=== PATIENT | male | born 1940 | race Caucasian/White ===

== ENCOUNTER 2017-06-25 01:02 | Inpatient (IN) | payer MEDICARE, BC ==
[~2017-06-25] VITALS: Ht 170.2 cm; Wt 95.9 kg
[~2017-06-25 01:02] MED LIST: ALLO100T PO; APIX5TAB3 PO; ATOR20TA PO; CALC-472 PO; CHOL2000 PO; CYCL100C PO; CYCL1DRO6 OP; CYCL25CA PO; ESOM40CA PO; FLO0.4C PO; FURO-150 PO; GABA-532 PO; GLYB1.253 PO; ICOS1CAP PO; METO25TA6 PO; VITA400C21 PO
[2017-06-25 01:46] LABS: ABG BASE EXCESS 1.9 mmol/L (-2.0-3.0); ABG HCO3 25.5 mmol/L (22.0-26.0); ABG PCO2 (T) 36.6 mmHg (35.0-48.0); ABG PH (T) 7.461 (7.350-7.450); ABG PO2 (T) 60.4 mmHg (83-108); ALLEN'S TEST Positive; FCOHb 1.3 % (0.5-1.5); FMetHb 0.3 % (0.3-1.12); FO2Hb 90.5 % (94-100); PATIENT TEMPERATURE 36.9; RESPIRATORY RATE (OBSERVED) 20 b/min; TOTAL HEMOGLOBIN 14.6 G/dl (14.0-18.0)
[2017-06-25 01:54] LABS: BASOPHILS % (AUTO) 0.2 % (0-1); EOSINOPHILS # (AUTO) 0.2 X10'3 (0-0.9); EOSINOPHILS % (AUTO) 1.1 % (0-6); HEMATOCRIT 43.4 % (42.0-52.0); HEMOGLOBIN 14.2 g/dl (14.0-17.9); LYMPHOCYTES # (AUTO) 1.4 X10'3 (1.1-4.8); MEAN CORPUSCULAR HGB CONC 32.8 % (33.0-36.5); MEAN CORPUSCULAR VOLUME 94.7 FL (78-98); MEAN PLATELET VOLUME 9.1 FL (7.4-10.4); MONOCYTES # (AUTO) 0.8 X10'3 (0-0.9); MONOCYTES % (AUTO) 5.2 % (2-12); NEUTROPHILS # (AUTO) 12.8 X10'3 (1.8-7.7); NEUTROPHILS % (AUTO) 84.5 % (42-75); PLATELET COUNT 141 X10'3 (140-440); RED BLOOD COUNT 4.59 X10'6 (4.70-6.10); RED CELL DISTRIBUTION WIDTH 16.6 % (11.5-14.5); WHITE BLOOD COUNT 15.1 X10'3 (4.5-11.0)
[2017-06-25 02:06] LABS: CLARITY,URINE Clear (Clear); COLOR,URINE Yellow (Yellow); GLUCOSE, URINE Negative (Neg); KETONES,URINE Negative (Neg); LEUKOCYTE ESTERASE ,URINE Negative (Neg); NITRITES, URINE Negative (Neg); OCCULT BLOOD,URINE Negative (Neg); PROTEIN,URINE Negative (Neg)
[2017-06-25 02:08] LABS: AMMONIA < 10 UMOL/L (11-32); INR 1.2 INR; PARTIAL THROMBOPLASTIN TIME 33 SECONDS (22-32); PROTHROMBIN TIME 12.1 SECONDS (9.0-12.0)
[2017-06-25 02:08] LABS: UA COLLECTION TYPE CLN CATCH MIDSTREAM
[2017-06-25 02:17] LABS: LACTIC SEPSIS 1.7 MMOL/L (0.4-2.0)
[2017-06-25 02:29] LABS: ALANINE AMINOTRANSFERASE 23 U/L (12-78); ALBUMIN 3.4 G/DL (3.4-5.0); ALBUMIN/GLOBULIN RATIO 0.9 (1.1-1.5); ALKALINE PHOSPHATASE 101 IU/L (46-116); ANION GAP 9 (8-16); ASPARTATE AMINO TRANSFERASE 14 U/L (10-37); BILIRUBIN,TOTAL 1.7 MG/DL (0.1-1.0); BLOOD UREA NITROGEN 41 MG/DL (7-18); BUN/CREATININE RATIO 22.8 (5.4-32.0); CHLORIDE 101 MMOL/L (99-107); GLUCOSE 157 MG/DL (70-104); POTASSIUM 4.7 MMOL/L (3.5-5.1); SODIUM 137 MMOL/L (135-145); TOTAL CARBON DIOXIDE 27.5 MMOL/L (24-32); TOTAL PROTEIN 7.1 G/DL (6.4-8.2); eGFR 37 ML/MIN
[2017-06-25 02:35] LABS: MAGNESIUM 1.4 MG/DL (1.5-2.4); PHOSPHORUS 2.9 MG/DL (2.3-4.5)
[2017-06-25] MEDS ORDERED: acetaminophen 325mg tablet PO ONE (03:00)
[2017-06-25] MEDS ORDERED: furosemide 10 MG/1 ML 10ml inj IV ONE (03:05)
[2017-06-25] MEDS ORDERED: glucagon, human recombinant 1mg kit SUBCUT PRN ×2 (03:50→11:35)
[2017-06-25] MEDS ORDERED: magnesium 2GM in 50ml NS 50 ML IV PRN ×2 (03:50→11:35)
[2017-06-25] MEDS ORDERED: morphine 5 MG/ML injection IV PRN ×2 (03:50)
[2017-06-25] MEDS ORDERED: dextrose 50%-water 50ml dispensing syringe IV PRN ×4 (03:50→11:35)
[2017-06-25] MEDS ORDERED: MESSAGE TO PHARMACY PO ONE ×2 (03:50→11:35)
[2017-06-25] MEDS ORDERED: diphenhydrAMINE 25mg capsule PO PRN (03:50)
[2017-06-25] MEDS ORDERED: ondansetron/PF 4mg/2ml inj IV PRN (03:50)
[2017-06-25] MEDS ORDERED: HYDROcodone/acetaminophen 5mg/325mg tablet PO PRN (03:50)
[2017-06-25] MEDS ORDERED: dextrose ORAL solution 15 GM/59 ML bottle PO PRN ×4 (03:50→11:35)
[2017-06-25] MEDS ORDERED: HYDROcodone/acetaminophen 10/325mg tab PO PRN (03:50)
[2017-06-25] MEDS ORDERED: acetaminophen 650mg rectal suppository RC PRN (03:50)
[2017-06-25] MEDS ORDERED: metoclopramide 5 mg/ml inj IV PRN (03:50)
[2017-06-25] MEDS ORDERED: mag hydrox/Alum hydrox/simeth 30ml oral suspension PO PRN (03:50)
[2017-06-25] MEDS ORDERED: bisacodyl 10mg suppository rectal RC PRN (03:50)
[2017-06-25] MEDS ORDERED: magnesium hydroxide 30ml (MOM) UD suspension PO PRN (03:50)
[2017-06-25] MEDS ORDERED: magnesium 4gm in 100ml NS 100 ML IV PRN ×2 (03:50→11:35)
[2017-06-25] MEDS ORDERED: diphenhydrAMINE 50 mg/ml inj IV PRN (03:50)
[2017-06-25] MEDS ORDERED: HYDROmorphone 1 mg/ml syringe IV PRN ×2 (03:50)
[2017-06-25] MEDS ORDERED: acetaminophen 325mg tablet PO PRN ×2 (03:50)
[2017-06-25] MEDS ORDERED: FURO-150 PO (03:51)
[2017-06-25] MEDS ORDERED: FURO40TA4 PO (03:51)
[2017-06-25] MEDS ORDERED: PREG200C PO (03:58)
[2017-06-25] MEDS ORDERED: HYDR-565 PO (03:58)
[2017-06-25] MEDS ORDERED: POTA10TA19 PO (03:58)
[2017-06-25] MEDS ORDERED: ZOLP5TAB8 PO (03:58)
[2017-06-25] MEDS ORDERED: PREG100C PO (03:58)
[2017-06-25 04:26] LABS: HEMOGLOBIN A1C 7.3 % (4.5-6.2)
[2017-06-25 04:28] LABS: LIPASE 191 U/L (73-393)
[2017-06-25 04:30] VITALS: BP 88/58
[2017-06-25] MEDS ORDERED: furosemide 10 MG/1 ML 10ml inj IV SCH (08:00)
[2017-06-25] MEDS: apixaban 5mg tablet PO SCH ×2 (08:00→23:51)
[2017-06-25] MEDS ORDERED: ESOMEPRAZOLE MAG TRIHYDRATE 40 MG PO SCH (08:00)
[2017-06-25] MEDS: allopurinol 100mg tablet PO SCH (08:10)
[2017-06-25] MEDS: docusate sod 100mg capsule PO SCH ×2 (08:10→23:48)
[2017-06-25] MEDS: gabapentin 300mg capsule PO SCH (08:10)
[2017-06-25] MEDS: tamsulosin 0.4mg capsule PO SCH (08:23)
[2017-06-25] MEDS: metoprolol tartrate 25mg tablet PO SCH ×2 (08:23→23:51)
[2017-06-25] MEDS: pantoprazole 40mg Tablet.DR PO SCH (08:24)
[2017-06-25 11:00] VITALS: BP 102/56
[2017-06-25] MEDS ORDERED: potassium Cl 20 mEq SR tablet PO PRN ×2 (11:35)
[2017-06-25] MEDS ORDERED: potassium Cl 40MEQ/NS 500ml 500 ML IV PRN ×2 (11:35)
[2017-06-25] MEDS ORDERED: insulin Lispro (HumaLOG) vial - multi-dose SQ SCH (11:35)
[2017-06-25] MEDS ORDERED: magnesium Cl slow-release 64mg tablet PO PRN (11:35)
[2017-06-25] MEDS: vancomycin inj 1,250 MG in normal saline 250ml IV soln 250 ML IV SCH (14:27)
[2017-06-25 15:00] VITALS: BP 114/60
[2017-06-25] MEDS: piperacillin/tazo 3.375gm/50ml 50 ML IV SCH ×2 (16:10→23:57)
[2017-06-25 19:00] VITALS: BP 125/85
[2017-06-25] MEDS ORDERED: temazepam 15mg capsule PO PRN (21:00)
[2017-06-25 23:00] VITALS: BP 126/60
[2017-06-25] MEDS: vitamin E 400 unit capsule PO SCH (23:47)
[2017-06-25] MEDS: calcium carbonate/vitamin D3 tablet PO SCH (23:50)
[2017-06-25] MEDS: atorvastatin 20mg tablet PO SCH (23:50)
[2017-06-25] MEDS: pregabalin 25mg capsule PO SCH (23:50)
[2017-06-25] MEDS: furosemide 10 MG/1 ML 10ml inj IV SCH (23:54)
[2017-06-26] MEDS: gabapentin 300mg capsule PO SCH ×3 (00:17→20:09)
[2017-06-26] MEDS: insulin glargine (Lantus) pen - multi-dose SQ SCH ×2 (00:27→23:52)
[2017-06-26] MEDS: piperacillin/tazo 3.375gm/50ml 50 ML IV SCH ×4 (02:00→20:06)
[2017-06-26 03:00] VITALS: BP 104/59
[2017-06-26 05:29] LABS: BASOPHILS % (AUTO) 0.2 % (0-1); EOSINOPHILS # (AUTO) 0.2 X10'3 (0-0.9); EOSINOPHILS % (AUTO) 1.5 % (0-6); HEMATOCRIT 37.9 % (42.0-52.0); HEMOGLOBIN 12.6 g/dl (14.0-17.9); LYMPHOCYTES # (AUTO) 1.4 X10'3 (1.1-4.8); LYMPHOCYTES % (AUTO) 12.5 % (21-51); MEAN CORPUSCULAR HEMOGLOBIN 31.3 PG (27.0-31.0); MEAN CORPUSCULAR HGB CONC 33.3 % (33.0-36.5); MEAN CORPUSCULAR VOLUME 94.1 FL (78-98); MONOCYTES # (AUTO) 0.8 X10'3 (0-0.9); MONOCYTES % (AUTO) 7.6 % (2-12); NEUTROPHILS # (AUTO) 8.7 X10'3 (1.8-7.7); NEUTROPHILS % (AUTO) 78.2 % (42-75); PLATELET COUNT 129 X10'3 (140-440); RED BLOOD COUNT 4.03 X10'6 (4.70-6.10); RED CELL DISTRIBUTION WIDTH 17.3 % (11.5-14.5); WHITE BLOOD COUNT 11.1 X10'3 (4.5-11.0)
[2017-06-26 06:00] VITALS: BP 104/55
[2017-06-26 06:12] LABS: ALANINE AMINOTRANSFERASE 15 U/L (12-78); ALBUMIN 2.9 G/DL (3.4-5.0); ALBUMIN/GLOBULIN RATIO 0.8 (1.1-1.5); ALKALINE PHOSPHATASE 94 IU/L (46-116); ANION GAP 11 (8-16); ASPARTATE AMINO TRANSFERASE 12 U/L (10-37); BILIRUBIN,TOTAL 1.9 MG/DL (0.1-1.0); BLOOD UREA NITROGEN 43 MG/DL (7-18); BUN/CREATININE RATIO 23.9 (5.4-32.0); CALCIUM 8.5 MG/DL (8.5-10.1); CHLORIDE 100 MMOL/L (99-107); GLUCOSE 141 MG/DL (70-104); MAGNESIUM 1.3 MG/DL (1.5-2.4); POTASSIUM 3.9 MMOL/L (3.5-5.1); SODIUM 140 MMOL/L (135-145); TOTAL CARBON DIOXIDE 28.8 MMOL/L (24-32); TOTAL PROTEIN 6.6 G/DL (6.4-8.2); eGFR 37 ML/MIN
[2017-06-26] MEDS: pregabalin 25mg capsule PO SCH ×2 (09:16→20:08)
[2017-06-26] MEDS: apixaban 5mg tablet PO SCH ×2 (09:16→19:47)
[2017-06-26] MEDS: furosemide 10 MG/1 ML 10ml inj IV SCH (09:16)
[2017-06-26] MEDS: pantoprazole 40mg Tablet.DR PO SCH (09:17)
[2017-06-26] MEDS: metoprolol tartrate 25mg tablet PO SCH ×2 (09:18→19:48)
[2017-06-26] MEDS: docusate sod 100mg capsule PO SCH ×2 (09:18→19:48)
[2017-06-26] MEDS: allopurinol 100mg tablet PO SCH (09:18)
[2017-06-26] MEDS: vitamin E 400 unit capsule PO SCH ×2 (09:18→19:46)
[2017-06-26] MEDS: tamsulosin 0.4mg capsule PO SCH (09:19)
[2017-06-26] MEDS ORDERED: magnesium 4gm in 100ml NS 100 ML IV PRN (09:20)
[2017-06-26] MEDS ORDERED: potassium Cl 40MEQ/NS 500ml 500 ML IV PRN ×2 (09:20)
[2017-06-26] MEDS ORDERED: magnesium Cl slow-release 64mg tablet PO PRN (09:20)
[2017-06-26] MEDS ORDERED: potassium Cl 20 mEq SR tablet PO PRN ×2 (09:20)
[2017-06-26] MEDS ORDERED: magnesium 2GM in 50ml NS 50 ML IV PRN (09:20)
[2017-06-26] MEDS: calcium carbonate/vitamin D3 tablet PO SCH ×2 (10:03→19:46)
[2017-06-26] MEDS: magnesium Cl slow-release 64mg tablet PO PRN ×2 (10:04→20:09)
[2017-06-26 11:00] VITALS: BP 114/65
[2017-06-26] MEDS: insulin Lispro (HumaLOG) vial - multi-dose SQ SCH ×2 (13:28→19:43)
[2017-06-26 15:00] VITALS: BP 96/64
[2017-06-26] MEDS: vancomycin inj 1,250 MG in normal saline 250ml IV soln 250 ML IV SCH (16:08)
[2017-06-26 19:00] VITALS: BP 130/81
[2017-06-26] MEDS: furosemide 20 MG/2 ML vial IV SCH (20:05)
[2017-06-26] MEDS: atorvastatin 20mg tablet PO SCH (20:08)
[2017-06-26 23:00] VITALS: BP 101/53
[2017-06-27] MEDS: piperacillin/tazo 3.375gm/50ml 50 ML IV SCH ×2 (01:34→08:47)
[2017-06-27 03:00] VITALS: BP 116/59
[2017-06-27 06:00] VITALS: BP 109/57
[2017-06-27 06:55] LABS: BASOPHILS % (AUTO) 0.2 % (0-1); EOSINOPHILS # (AUTO) 0.2 X10'3 (0-0.9); EOSINOPHILS % (AUTO) 2.5 % (0-6); HEMATOCRIT 38.9 % (42.0-52.0); HEMOGLOBIN 12.8 g/dl (14.0-17.9); LYMPHOCYTES # (AUTO) 1.2 X10'3 (1.1-4.8); LYMPHOCYTES % (AUTO) 12.5 % (21-51); MEAN CORPUSCULAR HEMOGLOBIN 31.2 PG (27.0-31.0); MEAN CORPUSCULAR HGB CONC 32.9 % (33.0-36.5); MEAN PLATELET VOLUME 9.1 FL (7.4-10.4); MONOCYTES # (AUTO) 0.8 X10'3 (0-0.9); MONOCYTES % (AUTO) 8.2 % (2-12); NEUTROPHILS # (AUTO) 7.2 X10'3 (1.8-7.7); NEUTROPHILS % (AUTO) 76.6 % (42-75); PLATELET COUNT 134 X10'3 (140-440); RED CELL DISTRIBUTION WIDTH 17.7 % (11.5-14.5); WHITE BLOOD COUNT 9.4 X10'3 (4.5-11.0)
[2017-06-27] MEDS: pantoprazole 40mg Tablet.DR PO SCH (07:30)
[2017-06-27 07:34] LABS: ALANINE AMINOTRANSFERASE 18 U/L (12-78); ALBUMIN 2.9 G/DL (3.4-5.0); ALBUMIN/GLOBULIN RATIO 0.8 (1.1-1.5); ALKALINE PHOSPHATASE 99 IU/L (46-116); ANION GAP 11 (8-16); ASPARTATE AMINO TRANSFERASE 13 U/L (10-37); BILIRUBIN,TOTAL 1.3 MG/DL (0.1-1.0); BLOOD UREA NITROGEN 45 MG/DL (7-18); BUN/CREATININE RATIO 23.2 (5.4-32.0); CALCIUM 8.9 MG/DL (8.5-10.1); CHLORIDE 100 MMOL/L (99-107); CREATININE 1.94 MG/DL (0.60-1.10); GLUCOSE 113 MG/DL (70-104); MAGNESIUM 1.6 MG/DL (1.5-2.4); POTASSIUM 3.7 MMOL/L (3.5-5.1); SODIUM 141 MMOL/L (135-145); TOTAL PROTEIN 6.6 G/DL (6.4-8.2); eGFR 34 ML/MIN
[2017-06-27] MEDS: apixaban 5mg tablet PO SCH (08:46)
[2017-06-27] MEDS: pregabalin 25mg capsule PO SCH (08:46)
[2017-06-27] MEDS: furosemide 20 MG/2 ML vial IV SCH (08:46)
[2017-06-27] MEDS: calcium carbonate/vitamin D3 tablet PO SCH (08:46)
[2017-06-27] MEDS: gabapentin 300mg capsule PO SCH (08:47)
[2017-06-27] MEDS: metoprolol tartrate 25mg tablet PO SCH (08:47)
[2017-06-27] MEDS: allopurinol 100mg tablet PO SCH (08:47)
[2017-06-27] MEDS: docusate sod 100mg capsule PO SCH (08:47)
[2017-06-27] MEDS: vitamin E 400 unit capsule PO SCH (08:47)
[2017-06-27] MEDS: tamsulosin 0.4mg capsule PO SCH (08:47)
[2017-06-27] MEDS: insulin Lispro (HumaLOG) vial - multi-dose SQ SCH (08:55)
[2017-06-27 11:00] VITALS: BP 107/71
[2017-06-27] MEDS ORDERED: AMOX-422 PO (11:26)
[2017-06-28] MEDS ORDERED: VANCOMYCIN LEVEL IV NR (13:30)
== END 2017-06-27 12:40 | disposition home or self-care (01) | DRG 280 ==
LOC: ER 01:03 → ED HOLD 03:52 → PCU 3S 04:20
PROVIDERS: ADMIT Family Medicine; ATTEND Family Medicine
DX: I13.0 Hypertensive heart and chronic kidney disease with heart failure and stage 1 through stage 4 chronic kidney disease, or unspecified chronic kidney disease (principal); G93.40 Encephalopathy, unspecified; I21.A1 Myocardial infarction type 2; J96.01 Acute respiratory failure with hypoxia; J18.9 Pneumonia, unspecified organism; N17.9 Acute kidney failure, unspecified; Z94.4 Liver transplant status; I48.91 Unspecified atrial fibrillation; E11.22 Type 2 diabetes mellitus with diabetic chronic kidney disease; I50.43 Acute on chronic combined systolic (congestive) and diastolic (congestive) heart failure; J44.0 Chronic obstructive pulmonary disease with (acute) lower respiratory infection; J44.1 Chronic obstructive pulmonary disease with (acute) exacerbation; E86.0 Dehydration; E83.42 Hypomagnesemia; E78.00 Pure hypercholesterolemia, unspecified; E78.5 Hyperlipidemia, unspecified; G47.30 Sleep apnea, unspecified; I25.10 Atherosclerotic heart disease of native coronary artery without angina pectoris; I35.0 Nonrheumatic aortic (valve) stenosis; T21.22XA Burn of second degree of abdominal wall, initial encounter; M10.9 Gout, unspecified; N18.9 Chronic kidney disease, unspecified; N40.0 Benign prostatic hyperplasia without lower urinary tract symptoms; R04.0 Epistaxis; Z88.8 Allergy status to other drugs, medicaments and biological substances; Z79.899 Other long term (current) drug therapy; Z90.49 Acquired absence of other specified parts of digestive tract; Z95.1 Presence of aortocoronary bypass graft; Z85.05 Personal history of malignant neoplasm of liver
CPT/HCPCS: 36415; 36600; 70450; 71010; 74176; 80053; 81003; 82140; 82803; 82948; 83036; 83605; 83690; 83735; 83880; 84100; 84484; 85018; 85025; 85610; 85730; 87040; 87070; 93005; 93306; 96374; 99285; J1815; J1940; J2543; J3370; J7030; J7515

== ENCOUNTER 2017-07-31 22:37 | Inpatient (IN) | payer MEDICARE, BC ==
[~2017-07-31] VITALS: Ht 172.7 cm; Wt 95.9 kg
[~2017-07-31 22:37] MED LIST changes: -CHOL2000 PO; +FURO40TA4 PO; -GABA-532 PO; -GLYB1.253 PO; +HYDR-565 PO; +POTA10TA19 PO; +PREG100C PO; +PREG200C PO; +ZOLP5TAB8 PO
[2017-07-31 23:04] LABS: BASOPHILS % (AUTO) 0.2 % (0-1); EOSINOPHILS # (AUTO) 0.2 X10'3 (0-0.9); EOSINOPHILS % (AUTO) 3.4 % (0-6); HEMATOCRIT 31.9 % (42.0-52.0); HEMOGLOBIN 10.2 g/dl (14.0-17.9); LYMPHOCYTES # (AUTO) 0.8 X10'3 (1.1-4.8); MEAN CORPUSCULAR HEMOGLOBIN 30.6 PG (27.0-31.0); MEAN CORPUSCULAR HGB CONC 31.9 % (33.0-36.5); MEAN CORPUSCULAR VOLUME 95.9 FL (78-98); MEAN PLATELET VOLUME 8.2 FL (7.4-10.4); MONOCYTES # (AUTO) 0.4 X10'3 (0-0.9); NEUTROPHILS # (AUTO) 5.8 X10'3 (1.8-7.7); NEUTROPHILS % (AUTO) 79.4 % (42-75); PLATELET COUNT 215 X10'3 (140-440); RED BLOOD COUNT 3.33 X10'6 (4.70-6.10); RED CELL DISTRIBUTION WIDTH 20.9 % (11.5-14.5); WHITE BLOOD COUNT 7.3 X10'3 (4.5-11.0)
[2017-07-31 23:15] LABS: INR 1.2 INR; PARTIAL THROMBOPLASTIN TIME 29 SECONDS (22-32); PROTHROMBIN TIME 12.3 SECONDS (9.0-12.0)
[2017-07-31 23:19] LABS: ALANINE AMINOTRANSFERASE 16 U/L (12-78); ALBUMIN 2.9 G/DL (3.4-5.0); ALBUMIN/GLOBULIN RATIO 0.8 (1.1-1.5); ALKALINE PHOSPHATASE 121 IU/L (46-116); ANION GAP 8 (8-16); ASPARTATE AMINO TRANSFERASE 15 U/L (10-37); BILIRUBIN,TOTAL 1.2 MG/DL (0.1-1.0); BLOOD UREA NITROGEN 46 MG/DL (7-18); BUN/CREATININE RATIO 23.5 (5.4-32.0); CALCIUM 8.4 MG/DL (8.5-10.1); CHLORIDE 106 MMOL/L (99-107); CREATININE 1.96 MG/DL (0.60-1.10); GLUCOSE 132 MG/DL (70-104); POTASSIUM 5.1 MMOL/L (3.5-5.1); SODIUM 142 MMOL/L (135-145); TOTAL CARBON DIOXIDE 28.3 MMOL/L (24-32); TOTAL PROTEIN 6.6 G/DL (6.4-8.2); eGFR 33 ML/MIN
[2017-07-31] MEDS ORDERED: furosemide 10 MG/1 ML 10ml inj IV ONE (23:40)
[2017-08-01] MEDS ORDERED: HYDROcodone/acetaminophen 5mg/325mg tablet PO PRN (00:20)
[2017-08-01] MEDS ORDERED: HYDROmorphone 1 mg/ml syringe IV PRN ×2 (00:20)
[2017-08-01] MEDS ORDERED: diphenhydrAMINE 25mg capsule PO PRN (00:20)
[2017-08-01] MEDS ORDERED: diphenhydrAMINE 50 mg/ml inj IV PRN (00:20)
[2017-08-01] MEDS ORDERED: HYDROcodone/acetaminophen 10/325mg tab PO PRN (00:20)
[2017-08-01] MEDS ORDERED: acetaminophen 650mg rectal suppository RC PRN (00:20)
[2017-08-01] MEDS ORDERED: acetaminophen 325mg tablet PO PRN (00:20)
[2017-08-01] MEDS ORDERED: ondansetron/PF 4mg/2ml inj IV PRN (00:20)
[2017-08-01] MEDS ORDERED: zolpidem 5mg tablet PO PRN (00:20)
[2017-08-01] MEDS ORDERED: metoclopramide 5 mg/ml inj IV PRN (00:20)
[2017-08-01] MEDS ORDERED: mag hydrox/Alum hydrox/simeth 30ml oral suspension PO PRN (00:20)
[2017-08-01] MEDS ORDERED: bisacodyl 10mg suppository rectal RC PRN (00:20)
[2017-08-01] MEDS ORDERED: dextrose 50%-water 50ml dispensing syringe IV PRN ×2 (00:25)
[2017-08-01] MEDS ORDERED: dextrose ORAL solution 15 GM/59 ML bottle PO PRN ×2 (00:25)
[2017-08-01] MEDS ORDERED: MESSAGE TO PHARMACY PO ONE (00:25)
[2017-08-01] MEDS ORDERED: glucagon, human recombinant 1mg kit SUBCUT PRN (00:25)
[2017-08-01] MEDS ORDERED: insulin Lispro (HumaLOG) vial - multi-dose SQ SCH (00:25)
[2017-08-01] MEDS: HYDROcodone/acetaminophen 10/325mg tab PO SCH ×4 (02:00→20:00)
[2017-08-01 02:26] LABS: HEMOGLOBIN A1C 7.1 % (4.5-6.2)
[2017-08-01 02:35] LABS: MAGNESIUM 1.7 MG/DL (1.5-2.4); PHOSPHORUS 4.6 MG/DL (2.3-4.5)
[2017-08-01] MEDS: furosemide 10 MG/1 ML 10ml inj IV SCH ×2 (08:00→21:33)
[2017-08-01] MEDS ORDERED: ESOMEPRAZOLE MAG TRIHYDRATE 40 MG PO SCH (08:00)
[2017-08-01] MEDS ORDERED: metoprolol tartrate 25mg tablet PO SCH (08:00)
[2017-08-01] MEDS ORDERED: METO25TA6 PO (09:03)
[2017-08-01] MEDS: pregabalin 25mg capsule PO SCH ×2 (09:20→21:31)
[2017-08-01] MEDS: tamsulosin 0.4mg capsule PO SCH (09:20)
[2017-08-01] MEDS: potassium chloride 10mEq ER tablet PO SCH (09:21)
[2017-08-01] MEDS: docusate sod 100mg capsule PO SCH ×2 (09:21→20:00)
[2017-08-01] MEDS: pantoprazole 40mg Tablet.DR PO SCH (09:21)
[2017-08-01] MEDS: allopurinol 100mg tablet PO SCH (09:21)
[2017-08-01] MEDS: metoprolol tartrate 12.5mg (1/2 tablet) PO SCH (09:21)
[2017-08-01 11:00] VITALS: BP 107/70
[2017-08-01 11:34] LABS: ALANINE AMINOTRANSFERASE 14 U/L (12-78); ALBUMIN 2.7 G/DL (3.4-5.0); ALKALINE PHOSPHATASE 103 IU/L (46-116); ANION GAP 9 (8-16); ASPARTATE AMINO TRANSFERASE 17 U/L (10-37); BILIRUBIN,TOTAL 1.2 MG/DL (0.1-1.0); BLOOD UREA NITROGEN 46 MG/DL (7-18); BUN/CREATININE RATIO 27.2 (5.4-32.0); CALCIUM 8.7 MG/DL (8.5-10.1); CHLORIDE 107 MMOL/L (99-107); CREATININE 1.69 MG/DL (0.60-1.10); GLUCOSE 109 MG/DL (70-104); POTASSIUM 4.3 MMOL/L (3.5-5.1); SODIUM 144 MMOL/L (135-145); TOTAL CARBON DIOXIDE 27.6 MMOL/L (24-32); eGFR 40 ML/MIN
[2017-08-01] MEDS: apixaban 5mg tablet PO SCH ×2 (11:45→21:31)
[2017-08-01 11:46] LABS: ALBUMIN/GLOBULIN RATIO 0.8 (1.1-1.5); TOTAL PROTEIN 6.1 G/DL (6.4-8.2)
[2017-08-01 17:00] VITALS: BP 110/65
[2017-08-01] MEDS ORDERED: ALLO100T PO (17:09)
[2017-08-01] MEDS ORDERED: GLYB2.5T4 PO (17:09)
[2017-08-01] MEDS ORDERED: temazepam 15mg capsule PO PRN (21:00)
[2017-08-01] MEDS: atorvastatin 20mg tablet PO SCH (21:30)
[2017-08-01] MEDS: pregabalin 75mg capsule PO SCH (21:31)
[2017-08-01 22:00] VITALS: BP 110/74
[2017-08-02] MEDS: HYDROcodone/acetaminophen 10/325mg tab PO SCH ×4 (02:00→19:06)
[2017-08-02 07:00] VITALS: BP 103/58
[2017-08-02 07:01] LABS: BASOPHILS % (AUTO) 0.4 % (0-1); EOSINOPHILS # (AUTO) 0.2 X10'3 (0-0.9); EOSINOPHILS % (AUTO) 4.1 % (0-6); HEMOGLOBIN 9.5 g/dl (14.0-17.9); LYMPHOCYTES # (AUTO) 0.8 X10'3 (1.1-4.8); LYMPHOCYTES % (AUTO) 14.3 % (21-51); MEAN CORPUSCULAR HEMOGLOBIN 30.5 PG (27.0-31.0); MEAN CORPUSCULAR HGB CONC 31.6 % (33.0-36.5); MEAN CORPUSCULAR VOLUME 96.3 FL (78-98); MEAN PLATELET VOLUME 8.8 FL (7.4-10.4); MONOCYTES # (AUTO) 0.4 X10'3 (0-0.9); MONOCYTES % (AUTO) 7.3 % (2-12); NEUTROPHILS # (AUTO) 3.9 X10'3 (1.8-7.7); NEUTROPHILS % (AUTO) 73.9 % (42-75); PLATELET COUNT 191 X10'3 (140-440); RED BLOOD COUNT 3.11 X10'6 (4.70-6.10); RED CELL DISTRIBUTION WIDTH 20.6 % (11.5-14.5); WHITE BLOOD COUNT 5.3 X10'3 (4.5-11.0)
[2017-08-02 07:42] LABS: ALANINE AMINOTRANSFERASE 18 U/L (12-78); ALBUMIN 2.6 G/DL (3.4-5.0); ALBUMIN/GLOBULIN RATIO 0.8 (1.1-1.5); ALKALINE PHOSPHATASE 98 IU/L (46-116); ANION GAP 10 (8-16); ASPARTATE AMINO TRANSFERASE 17 U/L (10-37); BILIRUBIN,TOTAL 1.4 MG/DL (0.1-1.0); BLOOD UREA NITROGEN 43 MG/DL (7-18); BUN/CREATININE RATIO 24.6 (5.4-32.0); CALCIUM 8.7 MG/DL (8.5-10.1); CHLORIDE 107 MMOL/L (99-107); CREATININE 1.75 MG/DL (0.60-1.10); GLUCOSE 106 MG/DL (70-104); POTASSIUM 4.2 MMOL/L (3.5-5.1); SODIUM 144 MMOL/L (135-145); TOTAL CARBON DIOXIDE 27.5 MMOL/L (24-32); TOTAL PROTEIN 5.9 G/DL (6.4-8.2); eGFR 38 ML/MIN
[2017-08-02 07:51] LABS: ANISOCYTOSIS 3+; PLATELET ESTIMATE NORMAL; POLYCHROMASIA 1+; SCHISTOCYTES FEW
[2017-08-02] MEDS: pantoprazole 40mg Tablet.DR PO SCH (07:57)
[2017-08-02] MEDS: furosemide 10 MG/1 ML 10ml inj IV SCH ×2 (07:58→21:04)
[2017-08-02] MEDS: metoprolol tartrate 12.5mg (1/2 tablet) PO SCH ×2 (07:59→21:04)
[2017-08-02] MEDS: pregabalin 25mg capsule PO SCH ×2 (07:59→21:00)
[2017-08-02] MEDS: apixaban 5mg tablet PO SCH ×2 (07:59→21:01)
[2017-08-02] MEDS: potassium chloride 10mEq ER tablet PO SCH (07:59)
[2017-08-02] MEDS: allopurinol 100mg tablet PO SCH (08:00)
[2017-08-02] MEDS: tamsulosin 0.4mg capsule PO SCH ×2 (08:00→21:17)
[2017-08-02] MEDS: docusate sod 100mg capsule PO SCH ×2 (08:00→20:00)
[2017-08-02 10:00] VITALS: BP 103/69
[2017-08-02 19:00] VITALS: BP 122/76
[2017-08-02] MEDS: pregabalin 75mg capsule PO SCH (21:01)
[2017-08-02] MEDS: atorvastatin 20mg tablet PO SCH (21:01)
[2017-08-02 22:00] VITALS: BP 115/71
[2017-08-03] MEDS: HYDROcodone/acetaminophen 10/325mg tab PO SCH ×4 (02:00→20:00)
[2017-08-03 06:00] VITALS: BP 96/62
[2017-08-03 06:21] LABS: BASOPHILS % (AUTO) 0.3 % (0-1); EOSINOPHILS # (AUTO) 0.2 X10'3 (0-0.9); EOSINOPHILS % (AUTO) 3.3 % (0-6); HEMATOCRIT 30.3 % (42.0-52.0); HEMOGLOBIN 9.6 g/dl (14.0-17.9); LYMPHOCYTES # (AUTO) 0.7 X10'3 (1.1-4.8); LYMPHOCYTES % (AUTO) 13.6 % (21-51); MEAN CORPUSCULAR HEMOGLOBIN 30.4 PG (27.0-31.0); MEAN CORPUSCULAR HGB CONC 31.7 % (33.0-36.5); MEAN CORPUSCULAR VOLUME 95.9 FL (78-98); MEAN PLATELET VOLUME 8.5 FL (7.4-10.4); MONOCYTES # (AUTO) 0.4 X10'3 (0-0.9); MONOCYTES % (AUTO) 6.9 % (2-12); NEUTROPHILS # (AUTO) 4.1 X10'3 (1.8-7.7); NEUTROPHILS % (AUTO) 75.9 % (42-75); PLATELET COUNT 196 X10'3 (140-440); RED BLOOD COUNT 3.16 X10'6 (4.70-6.10); RED CELL DISTRIBUTION WIDTH 20.6 % (11.5-14.5); WHITE BLOOD COUNT 5.4 X10'3 (4.5-11.0)
[2017-08-03 06:34] LABS: ALANINE AMINOTRANSFERASE 17 U/L (12-78); ALBUMIN 2.7 G/DL (3.4-5.0); ALBUMIN/GLOBULIN RATIO 0.8 (1.1-1.5); ALKALINE PHOSPHATASE 100 IU/L (46-116); ANION GAP 7 (8-16); ASPARTATE AMINO TRANSFERASE 17 U/L (10-37); BILIRUBIN,TOTAL 1.2 MG/DL (0.1-1.0); BLOOD UREA NITROGEN 45 MG/DL (7-18); BUN/CREATININE RATIO 26.3 (5.4-32.0); CALCIUM 8.9 MG/DL (8.5-10.1); CHLORIDE 107 MMOL/L (99-107); CREATININE 1.71 MG/DL (0.60-1.10); GLUCOSE 118 MG/DL (70-104); POTASSIUM 4.2 MMOL/L (3.5-5.1); SODIUM 143 MMOL/L (135-145); TOTAL CARBON DIOXIDE 29.5 MMOL/L (24-32); TOTAL PROTEIN 5.9 G/DL (6.4-8.2); eGFR 39 ML/MIN
[2017-08-03] MEDS: pregabalin 25mg capsule PO SCH ×2 (07:18→20:17)
[2017-08-03] MEDS: metoprolol tartrate 12.5mg (1/2 tablet) PO SCH (07:19)
[2017-08-03] MEDS: allopurinol 100mg tablet PO SCH (07:20)
[2017-08-03] MEDS: docusate sod 100mg capsule PO SCH ×2 (07:20→20:19)
[2017-08-03] MEDS: potassium chloride 10mEq ER tablet PO SCH (07:20)
[2017-08-03] MEDS: pantoprazole 40mg Tablet.DR PO SCH (07:20)
[2017-08-03] MEDS: tamsulosin 0.4mg capsule PO SCH (07:20)
[2017-08-03] MEDS: apixaban 5mg tablet PO SCH ×2 (07:20→20:18)
[2017-08-03] MEDS: furosemide 10 MG/1 ML 10ml inj IV SCH (07:21)
[2017-08-03 10:00] VITALS: BP 107/61
[2017-08-03] MEDS ORDERED: magnesium 2GM in 50ml NS 50 ML IV ONE (11:35)
[2017-08-03 12:51] LABS: MAGNESIUM 1.6 MG/DL (1.5-2.4)
[2017-08-03 15:00] VITALS: BP 90/62
[2017-08-03 19:00] VITALS: BP 103/65
[2017-08-03] MEDS: pregabalin 75mg capsule PO SCH (20:17)
[2017-08-03] MEDS: atorvastatin 20mg tablet PO SCH (20:18)
[2017-08-03] MEDS: metoprolol tartrate 25mg tablet PO SCH (20:19)
[2017-08-04] MEDS: HYDROcodone/acetaminophen 10/325mg tab PO SCH ×4 (02:48→20:28)
[2017-08-04 04:04] VITALS: BP 95/50
[2017-08-04 06:00] VITALS: BP_SYST 105; BP_SYST 138; BP_DIAS 66; BP_DIAS 73
[2017-08-04 06:04] LABS: BASOPHILS % (AUTO) 0.3 % (0-1); EOSINOPHILS # (AUTO) 0.2 X10'3 (0-0.9); EOSINOPHILS % (AUTO) 4.1 % (0-6); HEMATOCRIT 29.9 % (42.0-52.0); HEMOGLOBIN 9.4 g/dl (14.0-17.9); LYMPHOCYTES # (AUTO) 0.7 X10'3 (1.1-4.8); LYMPHOCYTES % (AUTO) 12.3 % (21-51); MEAN CORPUSCULAR HEMOGLOBIN 30.1 PG (27.0-31.0); MEAN CORPUSCULAR HGB CONC 31.3 % (33.0-36.5); MEAN PLATELET VOLUME 8.5 FL (7.4-10.4); MONOCYTES # (AUTO) 0.5 X10'3 (0-0.9); MONOCYTES % (AUTO) 8.4 % (2-12); NEUTROPHILS # (AUTO) 4.3 X10'3 (1.8-7.7); NEUTROPHILS % (AUTO) 74.9 % (42-75); PLATELET COUNT 183 X10'3 (140-440); RED BLOOD COUNT 3.11 X10'6 (4.70-6.10); RED CELL DISTRIBUTION WIDTH 20.6 % (11.5-14.5); WHITE BLOOD COUNT 5.8 X10'3 (4.5-11.0)
[2017-08-04 06:42] LABS: ALANINE AMINOTRANSFERASE 13 U/L (12-78); ALBUMIN 2.6 G/DL (3.4-5.0); ALBUMIN/GLOBULIN RATIO 0.8 (1.1-1.5); ALKALINE PHOSPHATASE 98 IU/L (46-116); ANION GAP 8 (8-16); ASPARTATE AMINO TRANSFERASE 25 U/L (10-37); BILIRUBIN,TOTAL 1.4 MG/DL (0.1-1.0); BLOOD UREA NITROGEN 45 MG/DL (7-18); BUN/CREATININE RATIO 29.2 (5.4-32.0); CALCIUM 8.4 MG/DL (8.5-10.1); CHLORIDE 103 MMOL/L (99-107); CREATININE 1.54 MG/DL (0.60-1.10); GLUCOSE 120 MG/DL (70-104); POTASSIUM 4.1 MMOL/L (3.5-5.1); SODIUM 139 MMOL/L (135-145); TOTAL CARBON DIOXIDE 28.4 MMOL/L (24-32); TOTAL PROTEIN 5.9 G/DL (6.4-8.2); eGFR 44 ML/MIN
[2017-08-04] MEDS: allopurinol 100mg tablet PO SCH (07:37)
[2017-08-04] MEDS: apixaban 5mg tablet PO SCH (07:38)
[2017-08-04] MEDS: pregabalin 25mg capsule PO SCH ×2 (07:38→20:27)
[2017-08-04] MEDS: docusate sod 100mg capsule PO SCH ×2 (07:38→20:27)
[2017-08-04] MEDS: metoprolol tartrate 25mg tablet PO SCH ×2 (07:38→20:00)
[2017-08-04] MEDS: pantoprazole 40mg Tablet.DR PO SCH (07:38)
[2017-08-04] MEDS: potassium chloride 10mEq ER tablet PO SCH (07:39)
[2017-08-04] MEDS: tamsulosin 0.4mg capsule PO SCH (07:40)
[2017-08-04] MEDS ORDERED: furosemide 10 MG/1 ML 10ml inj IV SCH (08:00)
[2017-08-04 11:00] VITALS: BP 91/56
[2017-08-04] MEDS ORDERED: LIDOcaine 2% 5ml jelly TOP STA (13:11)
[2017-08-04 15:00] VITALS: BP 93/57
[2017-08-04 17:50] LABS: HEMATOCRIT 31.9 % (42.0-52.0); MEAN CORPUSCULAR HEMOGLOBIN 30.1 PG (27.0-31.0); MEAN CORPUSCULAR HGB CONC 31.4 % (33.0-36.5); MEAN CORPUSCULAR VOLUME 95.7 FL (78-98); MEAN PLATELET VOLUME 8.4 FL (7.4-10.4); PLATELET COUNT 198 X10'3 (140-440); RED BLOOD COUNT 3.33 X10'6 (4.70-6.10); RED CELL DISTRIBUTION WIDTH 20.4 % (11.5-14.5); WHITE BLOOD COUNT 5.7 X10'3 (4.5-11.0)
[2017-08-04 18:07] LABS: INR 1.2 INR; PARTIAL THROMBOPLASTIN TIME 30 SECONDS (22-32); PROTHROMBIN TIME 12.5 SECONDS (9.0-12.0)
[2017-08-04 19:00] VITALS: BP 85/57
[2017-08-04] MEDS: atorvastatin 20mg tablet PO SCH (20:26)
[2017-08-04] MEDS: pregabalin 75mg capsule PO SCH (20:26)
[2017-08-04 23:00] VITALS: BP 91/61
[2017-08-05] MEDS: HYDROcodone/acetaminophen 10/325mg tab PO SCH ×5 (02:00→21:00)
[2017-08-05 03:00] VITALS: BP 100/66
[2017-08-05 05:49] LABS: BASOPHILS % (AUTO) 0.3 % (0-1); EOSINOPHILS # (AUTO) 0.2 X10'3 (0-0.9); HEMATOCRIT 32.1 % (42.0-52.0); HEMOGLOBIN 10.2 g/dl (14.0-17.9); LYMPHOCYTES # (AUTO) 0.7 X10'3 (1.1-4.8); LYMPHOCYTES % (AUTO) 11.6 % (21-51); MEAN CORPUSCULAR HGB CONC 31.7 % (33.0-36.5); MEAN CORPUSCULAR VOLUME 94.7 FL (78-98); MEAN PLATELET VOLUME 8.6 FL (7.4-10.4); MONOCYTES # (AUTO) 0.5 X10'3 (0-0.9); MONOCYTES % (AUTO) 8.7 % (2-12); NEUTROPHILS # (AUTO) 4.5 X10'3 (1.8-7.7); NEUTROPHILS % (AUTO) 75.4 % (42-75); PLATELET COUNT 197 X10'3 (140-440); RED BLOOD COUNT 3.39 X10'6 (4.70-6.10); RED CELL DISTRIBUTION WIDTH 20.3 % (11.5-14.5)
[2017-08-05 06:00] VITALS: BP 114/61
[2017-08-05 06:25] LABS: ALANINE AMINOTRANSFERASE 17 U/L (12-78); ALBUMIN 2.8 G/DL (3.4-5.0); ALBUMIN/GLOBULIN RATIO 0.8 (1.1-1.5); ALKALINE PHOSPHATASE 105 IU/L (46-116); ANION GAP 7 (8-16); ASPARTATE AMINO TRANSFERASE 18 U/L (10-37); BILIRUBIN,TOTAL 1.3 MG/DL (0.1-1.0); BLOOD UREA NITROGEN 46 MG/DL (7-18); BUN/CREATININE RATIO 28.4 (5.4-32.0); CALCIUM 8.6 MG/DL (8.5-10.1); CHLORIDE 103 MMOL/L (99-107); CREATININE 1.62 MG/DL (0.60-1.10); GLUCOSE 118 MG/DL (70-104); POTASSIUM 4.4 MMOL/L (3.5-5.1); SODIUM 139 MMOL/L (135-145); TOTAL CARBON DIOXIDE 28.9 MMOL/L (24-32); TOTAL PROTEIN 6.2 G/DL (6.4-8.2); eGFR 42 ML/MIN
[2017-08-05] MEDS: docusate sod 100mg capsule PO SCH ×2 (07:59→22:21)
[2017-08-05] MEDS: pregabalin 25mg capsule PO SCH ×2 (07:59→22:21)
[2017-08-05] MEDS: pantoprazole 40mg Tablet.DR PO SCH (07:59)
[2017-08-05] MEDS: metoprolol tartrate 25mg tablet PO SCH (08:00)
[2017-08-05] MEDS ORDERED: furosemide 10 MG/1 ML 10ml inj IV SCH (08:00)
[2017-08-05] MEDS: allopurinol 100mg tablet PO SCH (08:00)
[2017-08-05] MEDS: tamsulosin 0.4mg capsule PO SCH (08:00)
[2017-08-05] MEDS: potassium chloride 10mEq ER tablet PO SCH (08:00)
[2017-08-05] MEDS ORDERED: normal saline 1000ml 1,000 ML IV SCH (10:25)
[2017-08-05 11:00] VITALS: BP 93/61
[2017-08-05] MEDS ORDERED: normal saline 250ml IV soln 250 ML IV ONE (11:00)
[2017-08-05 15:00] VITALS: BP 92/54
[2017-08-05 18:00] VITALS: BP 121/70
[2017-08-05 22:00] VITALS: BP 129/69
[2017-08-05] MEDS: pregabalin 75mg capsule PO SCH (22:20)
[2017-08-05] MEDS: atorvastatin 20mg tablet PO SCH (22:21)
[2017-08-05] MEDS: metoprolol tartrate 12.5mg (1/2 tablet) PO SCH (22:23)
[2017-08-06 02:00] VITALS: BP 116/55
[2017-08-06] MEDS: HYDROcodone/acetaminophen 10/325mg tab PO SCH ×2 (02:00→20:00)
[2017-08-06 05:17] LABS: BASOPHILS % (AUTO) 0.3 % (0-1); EOSINOPHILS # (AUTO) 0.2 X10'3 (0-0.9); EOSINOPHILS % (AUTO) 1.8 % (0-6); HEMATOCRIT 33.2 % (42.0-52.0); HEMOGLOBIN 10.7 g/dl (14.0-17.9); LYMPHOCYTES # (AUTO) 0.8 X10'3 (1.1-4.8); LYMPHOCYTES % (AUTO) 8.4 % (21-51); MEAN CORPUSCULAR HEMOGLOBIN 30.3 PG (27.0-31.0); MEAN CORPUSCULAR HGB CONC 32.1 % (33.0-36.5); MEAN CORPUSCULAR VOLUME 94.5 FL (78-98); MEAN PLATELET VOLUME 8.5 FL (7.4-10.4); MONOCYTES # (AUTO) 0.8 X10'3 (0-0.9); MONOCYTES % (AUTO) 8.2 % (2-12); NEUTROPHILS # (AUTO) 7.5 X10'3 (1.8-7.7); NEUTROPHILS % (AUTO) 81.3 % (42-75); PLATELET COUNT 205 X10'3 (140-440); RED BLOOD COUNT 3.52 X10'6 (4.70-6.10); RED CELL DISTRIBUTION WIDTH 19.6 % (11.5-14.5); WHITE BLOOD COUNT 9.3 X10'3 (4.5-11.0)
[2017-08-06 06:00] VITALS: BP 121/69
[2017-08-06 06:06] LABS: ALANINE AMINOTRANSFERASE 27 U/L (12-78); ALBUMIN 2.7 G/DL (3.4-5.0); ALBUMIN/GLOBULIN RATIO 0.7 (1.1-1.5); ALKALINE PHOSPHATASE 120 IU/L (46-116); ANION GAP 8 (8-16); ASPARTATE AMINO TRANSFERASE 41 U/L (10-37); BILIRUBIN,TOTAL 1.3 MG/DL (0.1-1.0); BLOOD UREA NITROGEN 40 MG/DL (7-18); CALCIUM 8.6 MG/DL (8.5-10.1); CHLORIDE 104 MMOL/L (99-107); CREATININE 1.43 MG/DL (0.60-1.10); GLUCOSE 149 MG/DL (70-104); POTASSIUM 4.7 MMOL/L (3.5-5.1); SODIUM 138 MMOL/L (135-145); TOTAL CARBON DIOXIDE 25.6 MMOL/L (24-32); TOTAL PROTEIN 6.4 G/DL (6.4-8.2); eGFR 48 ML/MIN
[2017-08-06] MEDS: potassium chloride 10mEq ER tablet PO SCH (08:00)
[2017-08-06] MEDS: tamsulosin 0.4mg capsule PO SCH (08:41)
[2017-08-06] MEDS: pregabalin 25mg capsule PO SCH ×2 (08:42→21:16)
[2017-08-06] MEDS: allopurinol 100mg tablet PO SCH (08:42)
[2017-08-06] MEDS: metoprolol tartrate 12.5mg (1/2 tablet) PO SCH ×2 (08:42→21:14)
[2017-08-06] MEDS: docusate sod 100mg capsule PO SCH ×2 (08:42→20:00)
[2017-08-06] MEDS: pantoprazole 40mg Tablet.DR PO SCH (08:47)
[2017-08-06] MEDS ORDERED: cefTRIAXone 1g/NS 100ml IVPB 100 ML IV SCH (09:42)
[2017-08-06] MEDS: cefTRIAXone 1g/NS 100ml IVPB 100 ML IV SCH (10:04)
[2017-08-06] MEDS: digoxin 250mcg (0.25mg) tablet PO SCH (10:29)
[2017-08-06 11:00] VITALS: BP 123/75
[2017-08-06] MEDS: digoxin 250mcg (0.25mg) tablet PO ONE ×2 (12:32→12:37)
[2017-08-06] MEDS: acetaminophen 325mg tablet PO PRN (14:38)
[2017-08-06 15:00] VITALS: BP 121/77
[2017-08-06 18:00] VITALS: BP 104/57
[2017-08-06] MEDS: atorvastatin 20mg tablet PO SCH (21:14)
[2017-08-06] MEDS: pregabalin 75mg capsule PO SCH (21:16)
[2017-08-06 22:00] VITALS: BP 132/71
[2017-08-07 02:00] VITALS: BP 113/68
[2017-08-07] MEDS: HYDROcodone/acetaminophen 10/325mg tab PO SCH ×4 (02:00→19:22)
[2017-08-07 07:00] VITALS: BP 111/66
[2017-08-07] MEDS: docusate sod 100mg capsule PO SCH ×2 (08:19→19:17)
[2017-08-07] MEDS: metoprolol tartrate 12.5mg (1/2 tablet) PO SCH ×2 (08:19→19:17)
[2017-08-07] MEDS: furosemide 20 MG/2 ML vial IV SCH ×2 (08:19→19:17)
[2017-08-07] MEDS: LACTOBACILLUS RHAMNOSUS GG 15 billion unit sprinkle caps PO SCH (08:19)
[2017-08-07] MEDS: pregabalin 25mg capsule PO SCH ×2 (08:19→20:13)
[2017-08-07] MEDS: allopurinol 100mg tablet PO SCH (08:20)
[2017-08-07] MEDS: tamsulosin 0.4mg capsule PO SCH (08:20)
[2017-08-07] MEDS: potassium chloride 10mEq ER tablet PO SCH (08:20)
[2017-08-07] MEDS: pantoprazole 40mg Tablet.DR PO SCH (08:20)
[2017-08-07] MEDS: digoxin 250mcg (0.25mg) tablet PO SCH (08:20)
[2017-08-07] MEDS: cefTRIAXone 1g/NS 100ml IVPB 100 ML IV SCH (08:21)
[2017-08-07] MEDS: vancomycin/NS 1 GM ADD-VANTAGE 250 ML IV SCH ×2 (08:21→13:43)
[2017-08-07 08:59] LABS: BASOPHILS % (AUTO) 0.2 % (0-1); EOSINOPHILS # (AUTO) 0.2 X10'3 (0-0.9); EOSINOPHILS % (AUTO) 2.3 % (0-6); HEMATOCRIT 34.2 % (42.0-52.0); LYMPHOCYTES # (AUTO) 0.7 X10'3 (1.1-4.8); LYMPHOCYTES % (AUTO) 8.3 % (21-51); MEAN CORPUSCULAR HEMOGLOBIN 30.3 PG (27.0-31.0); MEAN CORPUSCULAR HGB CONC 32.2 % (33.0-36.5); MEAN CORPUSCULAR VOLUME 94.3 FL (78-98); MEAN PLATELET VOLUME 8.4 FL (7.4-10.4); MONOCYTES # (AUTO) 0.7 X10'3 (0-0.9); MONOCYTES % (AUTO) 8.3 % (2-12); NEUTROPHILS # (AUTO) 7.2 X10'3 (1.8-7.7); NEUTROPHILS % (AUTO) 80.9 % (42-75); PLATELET COUNT 203 X10'3 (140-440); RED BLOOD COUNT 3.62 X10'6 (4.70-6.10); RED CELL DISTRIBUTION WIDTH 19.7 % (11.5-14.5); WHITE BLOOD COUNT 8.9 X10'3 (4.5-11.0)
[2017-08-07 09:14] LABS: ALANINE AMINOTRANSFERASE 17 U/L (12-78); ALBUMIN 2.6 G/DL (3.4-5.0); ALBUMIN/GLOBULIN RATIO 0.7 (1.1-1.5); ALKALINE PHOSPHATASE 113 IU/L (46-116); ANION GAP 7 (8-16); ASPARTATE AMINO TRANSFERASE 18 U/L (10-37); BILIRUBIN,TOTAL 1.5 MG/DL (0.1-1.0); BLOOD UREA NITROGEN 37 MG/DL (7-18); BUN/CREATININE RATIO 25.7 (5.4-32.0); CALCIUM 8.7 MG/DL (8.5-10.1); CHLORIDE 105 MMOL/L (99-107); CREATININE 1.44 MG/DL (0.60-1.10); GLUCOSE 142 MG/DL (70-104); POTASSIUM 4.2 MMOL/L (3.5-5.1); SODIUM 140 MMOL/L (135-145); TOTAL CARBON DIOXIDE 27.7 MMOL/L (24-32); TOTAL PROTEIN 6.6 G/DL (6.4-8.2); eGFR 48 ML/MIN
[2017-08-07 11:00] VITALS: BP 130/63
[2017-08-07 15:00] VITALS: BP 130/70
[2017-08-07] MEDS: acetaminophen 325mg tablet PO PRN (15:27)
[2017-08-07 19:44] VITALS: BP 115/59
[2017-08-07] MEDS: vancomycin inj 1,250 MG in normal saline 250ml IV soln 250 ML IV SCH (20:09)
[2017-08-07] MEDS: atorvastatin 20mg tablet PO SCH (20:13)
[2017-08-07] MEDS: pregabalin 75mg capsule PO SCH (20:13)
[2017-08-07 22:00] VITALS: BP 100/55
[2017-08-08] MEDS: HYDROcodone/acetaminophen 10/325mg tab PO SCH ×4 (01:12→19:07)
[2017-08-08 02:00] VITALS: BP 114/66
[2017-08-08 06:00] VITALS: BP 128/67
[2017-08-08] MEDS: cefTRIAXone 1g/NS 100ml IVPB 100 ML IV SCH (07:30)
[2017-08-08] MEDS: tamsulosin 0.4mg capsule PO SCH (07:38)
[2017-08-08] MEDS: pregabalin 25mg capsule PO SCH ×2 (07:39→20:45)
[2017-08-08] MEDS: potassium chloride 10mEq ER tablet PO SCH (07:39)
[2017-08-08] MEDS: allopurinol 100mg tablet PO SCH (07:39)
[2017-08-08] MEDS: furosemide 20 MG/2 ML vial IV SCH ×2 (07:40→15:50)
[2017-08-08] MEDS: acetaminophen 325mg tablet PO PRN ×3 (07:41→20:44)
[2017-08-08] MEDS: LACTOBACILLUS RHAMNOSUS GG 15 billion unit sprinkle caps PO SCH (07:42)
[2017-08-08] MEDS: docusate sod 100mg capsule PO SCH ×2 (07:42→19:16)
[2017-08-08] MEDS: digoxin 250mcg (0.25mg) tablet PO SCH (07:43)
[2017-08-08] MEDS: metoprolol tartrate 12.5mg (1/2 tablet) PO SCH ×2 (07:43→19:16)
[2017-08-08] MEDS: pantoprazole 40mg Tablet.DR PO SCH (07:43)
[2017-08-08] MEDS: vancomycin inj 1,250 MG in normal saline 250ml IV soln 250 ML IV SCH ×2 (08:46→20:47)
[2017-08-08 11:00] VITALS: BP 101/52
[2017-08-08 15:00] VITALS: BP 116/42
[2017-08-08] MEDS: amiodarone 200mg tablet PO SCH ×2 (17:12→19:16)
[2017-08-08 18:00] VITALS: BP 117/57
[2017-08-08] MEDS: atorvastatin 20mg tablet PO SCH (20:44)
[2017-08-08] MEDS: pregabalin 75mg capsule PO SCH (20:45)
[2017-08-08 22:00] VITALS: BP 101/48
[2017-08-09] MEDS: HYDROcodone/acetaminophen 10/325mg tab PO SCH ×4 (01:09→19:06)
[2017-08-09 02:00] VITALS: BP 124/58
[2017-08-09 07:00] VITALS: BP 121/61
[2017-08-09] MEDS: allopurinol 100mg tablet PO SCH (08:16)
[2017-08-09] MEDS: docusate sod 100mg capsule PO SCH ×2 (08:16→19:18)
[2017-08-09] MEDS: potassium chloride 10mEq ER tablet PO SCH (08:16)
[2017-08-09] MEDS: amiodarone 200mg tablet PO SCH ×2 (08:16→19:18)
[2017-08-09] MEDS: tamsulosin 0.4mg capsule PO SCH (08:16)
[2017-08-09] MEDS: pantoprazole 40mg Tablet.DR PO SCH (08:16)
[2017-08-09] MEDS: pregabalin 25mg capsule PO SCH ×2 (08:16→20:44)
[2017-08-09] MEDS: LACTOBACILLUS RHAMNOSUS GG 15 billion unit sprinkle caps PO SCH (08:17)
[2017-08-09] MEDS: cefTRIAXone 1g/NS 100ml IVPB 100 ML IV SCH (08:17)
[2017-08-09] MEDS: furosemide 20 MG/2 ML vial IV SCH (08:19)
[2017-08-09] MEDS: digoxin 250mcg (0.25mg) tablet PO SCH (08:21)
[2017-08-09] MEDS: acetaminophen 325mg tablet PO PRN ×3 (08:28→19:18)
[2017-08-09] MEDS ORDERED: VANCOMYCIN LEVEL IV NR (08:30)
[2017-08-09] MEDS: metoprolol tartrate 12.5mg (1/2 tablet) PO SCH ×2 (08:37→19:18)
[2017-08-09 11:00] VITALS: BP 95/51
[2017-08-09 15:00] VITALS: BP 90/61
[2017-08-09] MEDS ORDERED: oxyCODONE IR 5mg (immed. release) tablet PO PRN (16:35)
[2017-08-09 19:15] VITALS: BP 106/53
[2017-08-09] MEDS: apixaban 5mg tablet PO SCH (19:18)
[2017-08-09] MEDS ORDERED: furosemide 20MG tablet PO SCH (20:00)
[2017-08-09] MEDS: pregabalin 75mg capsule PO SCH (20:43)
[2017-08-09] MEDS: atorvastatin 20mg tablet PO SCH (20:44)
[2017-08-09] MEDS ORDERED: VANCOMYCIN 750MG IV in NS 250 ML IV SCH (21:00)
[2017-08-09 22:00] VITALS: BP 107/54
[2017-08-10] VITALS (10 sets, daily range): BP systolic 81–113; BP diastolic 45–71
[2017-08-10] MEDS: HYDROcodone/acetaminophen 10/325mg tab PO SCH ×4 (00:30→20:00)
[2017-08-10] MEDS: cefTRIAXone 1g/NS 100ml IVPB 100 ML IV SCH (07:46)
[2017-08-10] MEDS: docusate sod 100mg capsule PO SCH ×2 (07:47→20:17)
[2017-08-10] MEDS: LACTOBACILLUS RHAMNOSUS GG 15 billion unit sprinkle caps PO SCH (07:47)
[2017-08-10] MEDS: pregabalin 25mg capsule PO SCH ×2 (07:47→20:18)
[2017-08-10] MEDS: allopurinol 100mg tablet PO SCH (07:47)
[2017-08-10] MEDS: potassium chloride 10mEq ER tablet PO SCH (07:48)
[2017-08-10] MEDS: furosemide 20MG tablet PO SCH ×2 (07:48→16:00)
[2017-08-10] MEDS: apixaban 5mg tablet PO SCH ×2 (07:48→20:17)
[2017-08-10] MEDS: tamsulosin 0.4mg capsule PO SCH (07:49)
[2017-08-10] MEDS: digoxin 250mcg (0.25mg) tablet PO SCH (07:49)
[2017-08-10] MEDS: metoprolol tartrate 12.5mg (1/2 tablet) PO SCH ×2 (07:49→20:00)
[2017-08-10] MEDS: pantoprazole 40mg Tablet.DR PO SCH (07:49)
[2017-08-10] MEDS: acetaminophen 325mg tablet PO PRN (07:52)
[2017-08-10] MEDS: amiodarone 200mg tablet PO SCH ×2 (07:53→20:17)
[2017-08-10] MEDS ORDERED: apixaban 5mg tablet PO SCH (08:00)
[2017-08-10 09:14] LABS: BASOPHILS % (AUTO) 0.4 % (0-1); EOSINOPHILS # (AUTO) 0.1 X10'3 (0-0.9); EOSINOPHILS % (AUTO) 3.4 % (0-6); HEMATOCRIT 29.8 % (42.0-52.0); HEMOGLOBIN 9.3 g/dl (14.0-17.9); LYMPHOCYTES # (AUTO) 0.5 X10'3 (1.1-4.8); LYMPHOCYTES % (AUTO) 12.2 % (21-51); MEAN CORPUSCULAR HEMOGLOBIN 28.9 PG (27.0-31.0); MEAN CORPUSCULAR HGB CONC 31.2 % (33.0-36.5); MEAN CORPUSCULAR VOLUME 92.6 FL (78-98); MEAN PLATELET VOLUME 7.8 FL (7.4-10.4); MONOCYTES # (AUTO) 0.5 X10'3 (0-0.9); MONOCYTES % (AUTO) 11.8 % (2-12); NEUTROPHILS # (AUTO) 2.8 X10'3 (1.8-7.7); NEUTROPHILS % (AUTO) 72.2 % (42-75); PLATELET COUNT 233 X10'3 (140-440); RED BLOOD COUNT 3.22 X10'6 (4.70-6.10); RED CELL DISTRIBUTION WIDTH 19.9 % (11.5-14.5); WHITE BLOOD COUNT 3.9 X10'3 (4.5-11.0)
[2017-08-10] MEDS: magnesium hydroxide 30ml (MOM) UD suspension PO PRN (09:23)
[2017-08-10 09:37] LABS: ALANINE AMINOTRANSFERASE 33 U/L (12-78); ALBUMIN 2.1 G/DL (3.4-5.0); ALBUMIN/GLOBULIN RATIO 0.6 (1.1-1.5); ALKALINE PHOSPHATASE 118 IU/L (46-116); ANION GAP 6 (8-16); ASPARTATE AMINO TRANSFERASE 24 U/L (10-37); BILIRUBIN,TOTAL 0.8 MG/DL (0.1-1.0); BLOOD UREA NITROGEN 39 MG/DL (7-18); BUN/CREATININE RATIO 22.5 (5.4-32.0); CALCIUM 8.4 MG/DL (8.5-10.1); CHLORIDE 105 MMOL/L (99-107); CREATININE 1.73 MG/DL (0.60-1.10); GLUCOSE 148 MG/DL (70-104); POTASSIUM 4.4 MMOL/L (3.5-5.1); SODIUM 138 MMOL/L (135-145); TOTAL CARBON DIOXIDE 27.2 MMOL/L (24-32); TOTAL PROTEIN 5.9 G/DL (6.4-8.2); eGFR 38 ML/MIN
[2017-08-10] MEDS: atorvastatin 20mg tablet PO SCH (20:17)
[2017-08-10] MEDS: pregabalin 75mg capsule PO SCH (20:18)
[2017-08-11 02:00] VITALS: BP 92/65
[2017-08-11] MEDS: HYDROcodone/acetaminophen 10/325mg tab PO SCH ×4 (02:00→20:58)
[2017-08-11 06:00] VITALS: BP 90/57
[2017-08-11] MEDS: potassium chloride 10mEq ER tablet PO SCH (08:00)
[2017-08-11] MEDS: metoprolol tartrate 12.5mg (1/2 tablet) PO SCH ×2 (08:00→20:57)
[2017-08-11] MEDS: furosemide 20MG tablet PO SCH (08:00)
[2017-08-11] MEDS: pregabalin 25mg capsule PO SCH ×2 (08:27→20:56)
[2017-08-11] MEDS: LACTOBACILLUS RHAMNOSUS GG 15 billion unit sprinkle caps PO SCH (08:27)
[2017-08-11] MEDS: tamsulosin 0.4mg capsule PO SCH (08:28)
[2017-08-11] MEDS: pantoprazole 40mg Tablet.DR PO SCH (08:28)
[2017-08-11] MEDS: apixaban 5mg tablet PO SCH ×2 (08:28→20:58)
[2017-08-11] MEDS: amiodarone 200mg tablet PO SCH ×2 (08:28→20:58)
[2017-08-11] MEDS: digoxin 250mcg (0.25mg) tablet PO SCH (08:28)
[2017-08-11] MEDS ORDERED: VANCOMYCIN LEVEL IV ONE (08:30)
[2017-08-11] MEDS: docusate sod 100mg capsule PO SCH ×2 (08:31→20:58)
[2017-08-11] MEDS: allopurinol 100mg tablet PO SCH ×2 (08:37→20:57)
[2017-08-11] MEDS: cefTRIAXone 1g/NS 100ml IVPB 100 ML IV SCH (08:54)
[2017-08-11 10:13] LABS: BASOPHILS % (AUTO) 0.3 % (0-1); EOSINOPHILS # (AUTO) 0.1 X10'3 (0-0.9); HEMATOCRIT 31.6 % (42.0-52.0); HEMOGLOBIN 9.8 g/dl (14.0-17.9); LYMPHOCYTES # (AUTO) 0.6 X10'3 (1.1-4.8); LYMPHOCYTES % (AUTO) 13.4 % (21-51); MEAN CORPUSCULAR HEMOGLOBIN 28.8 PG (27.0-31.0); MEAN CORPUSCULAR HGB CONC 31.1 % (33.0-36.5); MEAN CORPUSCULAR VOLUME 92.8 FL (78-98); MEAN PLATELET VOLUME 8.2 FL (7.4-10.4); MONOCYTES # (AUTO) 0.5 X10'3 (0-0.9); MONOCYTES % (AUTO) 10.4 % (2-12); NEUTROPHILS # (AUTO) 3.4 X10'3 (1.8-7.7); NEUTROPHILS % (AUTO) 72.9 % (42-75); PLATELET COUNT 248 X10'3 (140-440); RED BLOOD COUNT 3.41 X10'6 (4.70-6.10); RED CELL DISTRIBUTION WIDTH 20.3 % (11.5-14.5); WHITE BLOOD COUNT 4.6 X10'3 (4.5-11.0)
[2017-08-11 10:30] LABS: ALANINE AMINOTRANSFERASE 33 U/L (12-78); ALBUMIN 2.3 G/DL (3.4-5.0); ALBUMIN/GLOBULIN RATIO 0.6 (1.1-1.5); ALKALINE PHOSPHATASE 138 IU/L (46-116); ANION GAP 6 (8-16); ASPARTATE AMINO TRANSFERASE 22 U/L (10-37); BILIRUBIN,TOTAL 0.7 MG/DL (0.1-1.0); BLOOD UREA NITROGEN 44 MG/DL (7-18); BUN/CREATININE RATIO 24.9 (5.4-32.0); CALCIUM 8.6 MG/DL (8.5-10.1); CHLORIDE 105 MMOL/L (99-107); CREATININE 1.77 MG/DL (0.60-1.10); GLUCOSE 174 MG/DL (70-104); POTASSIUM 4.6 MMOL/L (3.5-5.1); SODIUM 138 MMOL/L (135-145); TOTAL PROTEIN 6.3 G/DL (6.4-8.2); VANCOMYCIN,TROUGH 12.2 UG/ML (6.0-14.0); eGFR 37 ML/MIN
[2017-08-11 10:58] LABS: ANISOCYTOSIS 2+; PLATELET ESTIMATE NORMAL
[2017-08-11 10:59] LABS: BURR CELLS 1+; SCHISTOCYTES FEW
[2017-08-11 11:00] VITALS: BP 102/51
[2017-08-11] MEDS: acetaminophen 325mg tablet PO PRN (12:16)
[2017-08-11 15:00] VITALS: BP 90/50
[2017-08-11 18:00] VITALS: BP 124/56
[2017-08-11] MEDS: atorvastatin 20mg tablet PO SCH (20:57)
[2017-08-11] MEDS: pregabalin 75mg capsule PO SCH (20:58)
[2017-08-11] MEDS: magnesium hydroxide 30ml (MOM) UD suspension PO PRN (21:09)
[2017-08-11 22:00] VITALS: BP 107/56
[2017-08-12 02:00] VITALS: BP 108/53
[2017-08-12] MEDS: HYDROcodone/acetaminophen 10/325mg tab PO SCH ×4 (02:00→20:00)
[2017-08-12 05:56] LABS: BASOPHILS % (AUTO) 0.4 % (0-1); EOSINOPHILS # (AUTO) 0.1 X10'3 (0-0.9); HEMATOCRIT 28.7 % (42.0-52.0); LYMPHOCYTES # (AUTO) 0.8 X10'3 (1.1-4.8); LYMPHOCYTES % (AUTO) 20.7 % (21-51); MEAN CORPUSCULAR HEMOGLOBIN 28.8 PG (27.0-31.0); MEAN CORPUSCULAR HGB CONC 31.3 % (33.0-36.5); MEAN CORPUSCULAR VOLUME 91.9 FL (78-98); MEAN PLATELET VOLUME 8.1 FL (7.4-10.4); MONOCYTES # (AUTO) 0.6 X10'3 (0-0.9); MONOCYTES % (AUTO) 15.8 % (2-12); NEUTROPHILS # (AUTO) 2.3 X10'3 (1.8-7.7); NEUTROPHILS % (AUTO) 60.1 % (42-75); PLATELET COUNT 259 X10'3 (140-440); RED BLOOD COUNT 3.13 X10'6 (4.70-6.10); RED CELL DISTRIBUTION WIDTH 20.4 % (11.5-14.5); WHITE BLOOD COUNT 3.9 X10'3 (4.5-11.0)
[2017-08-12 06:00] VITALS: BP 114/63
[2017-08-12 06:39] LABS: ALANINE AMINOTRANSFERASE 37 U/L (12-78); ALBUMIN/GLOBULIN RATIO 0.5 (1.1-1.5); ALKALINE PHOSPHATASE 130 IU/L (46-116); ANION GAP 5 (8-16); ASPARTATE AMINO TRANSFERASE 23 U/L (10-37); BILIRUBIN,TOTAL 0.7 MG/DL (0.1-1.0); BLOOD UREA NITROGEN 46 MG/DL (7-18); BUN/CREATININE RATIO 23.8 (5.4-32.0); CALCIUM 8.4 MG/DL (8.5-10.1); CHLORIDE 105 MMOL/L (99-107); CREATININE 1.93 MG/DL (0.60-1.10); GLUCOSE 93 MG/DL (70-104); POTASSIUM 4.8 MMOL/L (3.5-5.1); SODIUM 139 MMOL/L (135-145); TOTAL CARBON DIOXIDE 28.7 MMOL/L (24-32); TOTAL PROTEIN 5.8 G/DL (6.4-8.2); eGFR 34 ML/MIN
[2017-08-12 08:16] LABS: ANISOCYTOSIS 2+; PLATELET ESTIMATE NORMAL; POLYCHROMASIA 1+
[2017-08-12] MEDS: LACTOBACILLUS RHAMNOSUS GG 15 billion unit sprinkle caps PO SCH (08:46)
[2017-08-12] MEDS: cefTRIAXone 1g/NS 100ml IVPB 100 ML IV SCH (08:46)
[2017-08-12] MEDS: acetaminophen 325mg tablet PO PRN ×2 (08:47→14:57)
[2017-08-12] MEDS: pantoprazole 40mg Tablet.DR PO SCH (08:47)
[2017-08-12] MEDS: digoxin 250mcg (0.25mg) tablet PO SCH (08:48)
[2017-08-12] MEDS: pregabalin 25mg capsule PO SCH ×2 (08:48→20:30)
[2017-08-12] MEDS: amiodarone 200mg tablet PO SCH ×2 (08:48→20:28)
[2017-08-12] MEDS: metoprolol tartrate 12.5mg (1/2 tablet) PO SCH ×2 (08:49→20:29)
[2017-08-12] MEDS: tamsulosin 0.4mg capsule PO SCH (08:49)
[2017-08-12] MEDS: furosemide 20MG tablet PO SCH (08:49)
[2017-08-12] MEDS: potassium chloride 10mEq ER tablet PO SCH (08:49)
[2017-08-12] MEDS: docusate sod 100mg capsule PO SCH ×2 (08:49→20:29)
[2017-08-12] MEDS: apixaban 5mg tablet PO SCH ×2 (08:49→20:31)
[2017-08-12] MEDS: allopurinol 100mg tablet PO SCH ×2 (08:50→20:28)
[2017-08-12 11:00] VITALS: BP 93/50
[2017-08-12] MEDS ORDERED: magnesium citrate 296ml oral solution PO ONE (11:00)
[2017-08-12 15:00] VITALS: BP 121/99
[2017-08-12 18:00] VITALS: BP 102/52
[2017-08-12] MEDS: pregabalin 75mg capsule PO SCH (20:28)
[2017-08-12] MEDS: atorvastatin 20mg tablet PO SCH (20:28)
[2017-08-12 22:00] VITALS: BP 104/59
[2017-08-13 02:00] VITALS: BP 125/67
[2017-08-13] MEDS: HYDROcodone/acetaminophen 10/325mg tab PO SCH ×4 (02:00→20:00)
[2017-08-13 05:43] LABS: ALANINE AMINOTRANSFERASE 40 U/L (12-78); ALBUMIN 2.3 G/DL (3.4-5.0); ALBUMIN/GLOBULIN RATIO 0.6 (1.1-1.5); ALKALINE PHOSPHATASE 146 IU/L (46-116); ANION GAP 7 (8-16); ASPARTATE AMINO TRANSFERASE 31 U/L (10-37); BILIRUBIN,TOTAL 0.7 MG/DL (0.1-1.0); BLOOD UREA NITROGEN 49 MG/DL (7-18); BUN/CREATININE RATIO 25.3 (5.4-32.0); CALCIUM 8.4 MG/DL (8.5-10.1); CHLORIDE 103 MMOL/L (99-107); CREATININE 1.94 MG/DL (0.60-1.10); GLUCOSE 107 MG/DL (70-104); POTASSIUM 5.2 MMOL/L (3.5-5.1); SODIUM 140 MMOL/L (135-145); TOTAL CARBON DIOXIDE 29.7 MMOL/L (24-32); TOTAL PROTEIN 6.3 G/DL (6.4-8.2); eGFR 34 ML/MIN
[2017-08-13 05:44] LABS: BASOPHILS % (AUTO) 0.2 % (0-1); EOSINOPHILS # (AUTO) 0.1 X10'3 (0-0.9); EOSINOPHILS % (AUTO) 2.3 % (0-6); HEMATOCRIT 30.8 % (42.0-52.0); HEMOGLOBIN 9.8 g/dl (14.0-17.9); LYMPHOCYTES # (AUTO) 0.6 X10'3 (1.1-4.8); LYMPHOCYTES % (AUTO) 15.8 % (21-51); MEAN CORPUSCULAR HEMOGLOBIN 28.8 PG (27.0-31.0); MEAN CORPUSCULAR HGB CONC 31.7 % (33.0-36.5); MEAN CORPUSCULAR VOLUME 90.7 FL (78-98); MONOCYTES # (AUTO) 0.5 X10'3 (0-0.9); MONOCYTES % (AUTO) 12.9 % (2-12); NEUTROPHILS # (AUTO) 2.8 X10'3 (1.8-7.7); NEUTROPHILS % (AUTO) 68.8 % (42-75); PLATELET COUNT 294 X10'3 (140-440); RED CELL DISTRIBUTION WIDTH 20.1 % (11.5-14.5); WHITE BLOOD COUNT 4.1 X10'3 (4.5-11.0)
[2017-08-13 06:00] VITALS: BP 120/59
[2017-08-13] MEDS: potassium chloride 10mEq ER tablet PO SCH (07:06)
[2017-08-13] MEDS: docusate sod 100mg capsule PO SCH ×2 (07:17→19:59)
[2017-08-13] MEDS: LACTOBACILLUS RHAMNOSUS GG 15 billion unit sprinkle caps PO SCH (07:32)
[2017-08-13] MEDS: cefTRIAXone 1g/NS 100ml IVPB 100 ML IV SCH ×2 (07:32→11:15)
[2017-08-13] MEDS: pantoprazole 40mg Tablet.DR PO SCH (07:32)
[2017-08-13] MEDS: tamsulosin 0.4mg capsule PO SCH (07:33)
[2017-08-13] MEDS: amiodarone 200mg tablet PO SCH ×2 (07:33→19:59)
[2017-08-13] MEDS: apixaban 5mg tablet PO SCH ×2 (07:33→19:59)
[2017-08-13] MEDS: furosemide 20MG tablet PO SCH (07:36)
[2017-08-13] MEDS: pregabalin 25mg capsule PO SCH ×2 (07:36→20:00)
[2017-08-13] MEDS: digoxin 250mcg (0.25mg) tablet PO SCH (07:36)
[2017-08-13] MEDS: metoprolol tartrate 12.5mg (1/2 tablet) PO SCH ×2 (07:36→20:00)
[2017-08-13] MEDS: allopurinol 100mg tablet PO SCH ×2 (07:37→20:00)
[2017-08-13 11:00] VITALS: BP 100/60
[2017-08-13 16:37] VITALS: BP 133/69
[2017-08-13 20:00] VITALS: BP 115/71
[2017-08-13] MEDS: atorvastatin 20mg tablet PO SCH (20:00)
[2017-08-13] MEDS: pregabalin 75mg capsule PO SCH (20:01)
[2017-08-14] VITALS: BP 125/79
[2017-08-14] MEDS: HYDROcodone/acetaminophen 10/325mg tab PO SCH ×4 (02:00→20:00)
[2017-08-14 07:27] VITALS: BP 132/69
[2017-08-14] MEDS: docusate sod 100mg capsule PO SCH ×2 (08:00→21:14)
[2017-08-14] MEDS: pantoprazole 40mg Tablet.DR PO SCH (10:12)
[2017-08-14] MEDS: LACTOBACILLUS RHAMNOSUS GG 15 billion unit sprinkle caps PO SCH (10:12)
[2017-08-14] MEDS: cefTRIAXone 1g/NS 100ml IVPB 100 ML IV SCH (10:12)
[2017-08-14] MEDS: apixaban 5mg tablet PO SCH ×2 (10:13→21:14)
[2017-08-14] MEDS: amiodarone 200mg tablet PO SCH ×2 (10:13→21:15)
[2017-08-14] MEDS: potassium chloride 10mEq ER tablet PO SCH (10:14)
[2017-08-14] MEDS: tamsulosin 0.4mg capsule PO SCH (10:14)
[2017-08-14] MEDS: furosemide 20MG tablet PO SCH (10:17)
[2017-08-14] MEDS: digoxin 250mcg (0.25mg) tablet PO SCH (10:17)
[2017-08-14] MEDS: metoprolol tartrate 12.5mg (1/2 tablet) PO SCH ×2 (10:18→21:15)
[2017-08-14] MEDS: pregabalin 25mg capsule PO SCH ×2 (10:18→21:15)
[2017-08-14] MEDS: allopurinol 100mg tablet PO SCH ×2 (10:31→21:21)
[2017-08-14 12:24] VITALS: BP 139/79
[2017-08-14] MEDS: acetaminophen 325mg tablet PO PRN (15:54)
[2017-08-14 19:30] VITALS: BP 122/62
[2017-08-14] MEDS: atorvastatin 20mg tablet PO SCH (21:14)
[2017-08-14] MEDS: pregabalin 75mg capsule PO SCH (21:15)
[2017-08-14 23:00] VITALS: BP 122/62
[2017-08-15] MEDS: HYDROcodone/acetaminophen 10/325mg tab PO SCH ×4 (01:15→20:00)
[2017-08-15 08:00] VITALS: BP 143/71
[2017-08-15] MEDS: docusate sod 100mg capsule PO SCH ×2 (08:00→20:00)
[2017-08-15] MEDS: potassium chloride 10mEq ER tablet PO SCH (08:00)
[2017-08-15] MEDS: LACTOBACILLUS RHAMNOSUS GG 15 billion unit sprinkle caps PO SCH (09:10)
[2017-08-15] MEDS: pantoprazole 40mg Tablet.DR PO SCH (09:11)
[2017-08-15] MEDS: cefTRIAXone 1g/NS 100ml IVPB 100 ML IV SCH (09:11)
[2017-08-15] MEDS: amiodarone 200mg tablet PO SCH ×2 (09:11→20:46)
[2017-08-15] MEDS: apixaban 5mg tablet PO SCH ×2 (09:12→20:46)
[2017-08-15] MEDS: tamsulosin 0.4mg capsule PO SCH (09:12)
[2017-08-15] MEDS: digoxin 250mcg (0.25mg) tablet PO SCH (09:14)
[2017-08-15] MEDS: furosemide 20MG tablet PO SCH (09:14)
[2017-08-15] MEDS: metoprolol tartrate 12.5mg (1/2 tablet) PO SCH ×2 (09:15→20:00)
[2017-08-15] MEDS: pregabalin 25mg capsule PO SCH ×2 (09:15→20:47)
[2017-08-15] MEDS: allopurinol 100mg tablet PO SCH ×2 (09:16→20:46)
[2017-08-15 11:52] LABS: POTASSIUM 4.6 MMOL/L (3.5-5.1)
[2017-08-15 12:00] VITALS: BP 120/71
[2017-08-15] MEDS: acetaminophen 325mg tablet PO PRN ×2 (15:30→21:36)
[2017-08-15 20:00] VITALS: BP 109/53
[2017-08-15] MEDS: atorvastatin 20mg tablet PO SCH (20:46)
[2017-08-15] MEDS: pregabalin 75mg capsule PO SCH (20:47)
[2017-08-15 23:00] VITALS: BP 118/75
[2017-08-16] MEDS: HYDROcodone/acetaminophen 10/325mg tab PO SCH ×4 (02:00→19:15)
[2017-08-16 07:21] VITALS: BP 137/73
[2017-08-16] MEDS: digoxin 250mcg (0.25mg) tablet PO SCH (08:00)
[2017-08-16 08:56] LABS: ALBUMIN 2.4 G/DL (3.4-5.0); ANION GAP 5 (8-16); BLOOD UREA NITROGEN 30 MG/DL (7-18); BUN/CREATININE RATIO 20.4 (5.4-32.0); CALCIUM 8.8 MG/DL (8.5-10.1); CHLORIDE 104 MMOL/L (99-107); CREATININE 1.47 MG/DL (0.60-1.10); GLUCOSE 132 MG/DL (70-104); POTASSIUM 4.6 MMOL/L (3.5-5.1); SODIUM 139 MMOL/L (135-145); TOTAL CARBON DIOXIDE 30.1 MMOL/L (24-32); TROPONIN I 0.05 NG/ML (0.0-0.05); eGFR 46 ML/MIN
[2017-08-16] MEDS: amiodarone 200mg tablet PO SCH ×2 (08:56→19:12)
[2017-08-16] MEDS: allopurinol 100mg tablet PO SCH ×2 (08:56→19:13)
[2017-08-16] MEDS: furosemide 20MG tablet PO SCH (08:56)
[2017-08-16] MEDS: pregabalin 25mg capsule PO SCH ×2 (08:56→21:08)
[2017-08-16] MEDS: potassium chloride 10mEq ER tablet PO SCH (08:56)
[2017-08-16] MEDS: tamsulosin 0.4mg capsule PO SCH (08:56)
[2017-08-16] MEDS: metoprolol tartrate 12.5mg (1/2 tablet) PO SCH ×2 (08:56→19:13)
[2017-08-16] MEDS: apixaban 5mg tablet PO SCH ×2 (08:56→21:09)
[2017-08-16] MEDS: cefTRIAXone 1g/NS 100ml IVPB 100 ML IV SCH (08:57)
[2017-08-16] MEDS: pantoprazole 40mg Tablet.DR PO SCH (08:58)
[2017-08-16 08:59] LABS: BASOPHILS % (AUTO) 0.2 % (0-1); EOSINOPHILS # (AUTO) 0.1 X10'3 (0-0.9); EOSINOPHILS % (AUTO) 2.3 % (0-6); HEMATOCRIT 33.5 % (42.0-52.0); HEMOGLOBIN 10.8 g/dl (14.0-17.9); LYMPHOCYTES # (AUTO) 0.8 X10'3 (1.1-4.8); LYMPHOCYTES % (AUTO) 19.6 % (21-51); MEAN CORPUSCULAR HEMOGLOBIN 28.8 PG (27.0-31.0); MEAN CORPUSCULAR HGB CONC 32.2 % (33.0-36.5); MEAN CORPUSCULAR VOLUME 89.5 FL (78-98); MEAN PLATELET VOLUME 7.9 FL (7.4-10.4); MONOCYTES # (AUTO) 0.4 X10'3 (0-0.9); MONOCYTES % (AUTO) 8.9 % (2-12); NEUTROPHILS # (AUTO) 2.9 X10'3 (1.8-7.7); PLATELET COUNT 323 X10'3 (140-440); RED BLOOD COUNT 3.74 X10'6 (4.70-6.10); RED CELL DISTRIBUTION WIDTH 20.2 % (11.5-14.5); WHITE BLOOD COUNT 4.2 X10'3 (4.5-11.0)
[2017-08-16] MEDS: LACTOBACILLUS RHAMNOSUS GG 15 billion unit sprinkle caps PO SCH (08:59)
[2017-08-16] MEDS: docusate sod 100mg capsule PO SCH ×2 (09:00→19:13)
[2017-08-16] MEDS ORDERED: furosemide 40mg/4ml inj IV ONE (10:30)
[2017-08-16 11:59] VITALS: BP 135/73
[2017-08-16] MEDS: LACTOSE-FREE FOOD 237ML (BOOST) PO SCH (18:00)
[2017-08-16] MEDS: furosemide 20 MG/2 ML vial IV SCH (19:12)
[2017-08-16] MEDS: acetaminophen 325mg tablet PO PRN (19:12)
[2017-08-16 20:00] VITALS: BP 139/66
[2017-08-16] MEDS: pregabalin 75mg capsule PO SCH (21:09)
[2017-08-16] MEDS: atorvastatin 20mg tablet PO SCH (21:09)
[2017-08-17] VITALS: BP 109/66
[2017-08-17] MEDS: HYDROcodone/acetaminophen 10/325mg tab PO SCH ×3 (02:00→13:33)
[2017-08-17 06:13] LABS: BASOPHILS % (AUTO) 0.5 % (0-1); EOSINOPHILS # (AUTO) 0.1 X10'3 (0-0.9); EOSINOPHILS % (AUTO) 2.2 % (0-6); HEMATOCRIT 31.5 % (42.0-52.0); HEMOGLOBIN 9.9 g/dl (14.0-17.9); LYMPHOCYTES # (AUTO) 0.8 X10'3 (1.1-4.8); LYMPHOCYTES % (AUTO) 18.7 % (21-51); MEAN CORPUSCULAR HEMOGLOBIN 28.2 PG (27.0-31.0); MEAN CORPUSCULAR HGB CONC 31.5 % (33.0-36.5); MEAN CORPUSCULAR VOLUME 89.6 FL (78-98); MEAN PLATELET VOLUME 8.1 FL (7.4-10.4); MONOCYTES # (AUTO) 0.5 X10'3 (0-0.9); MONOCYTES % (AUTO) 10.7 % (2-12); NEUTROPHILS % (AUTO) 67.9 % (42-75); PLATELET COUNT 311 X10'3 (140-440); RED BLOOD COUNT 3.52 X10'6 (4.70-6.10); RED CELL DISTRIBUTION WIDTH 20.9 % (11.5-14.5); WHITE BLOOD COUNT 4.4 X10'3 (4.5-11.0)
[2017-08-17 06:43] LABS: ALBUMIN 2.3 G/DL (3.4-5.0); ANION GAP 6 (8-16); BLOOD UREA NITROGEN 28 MG/DL (7-18); BUN/CREATININE RATIO 18.7 (5.4-32.0); CALCIUM 8.6 MG/DL (8.5-10.1); CHLORIDE 104 MMOL/L (99-107); GLUCOSE 95 MG/DL (70-104); MAGNESIUM 1.6 MG/DL (1.5-2.4); POTASSIUM 4.4 MMOL/L (3.5-5.1); SODIUM 140 MMOL/L (135-145); TOTAL CARBON DIOXIDE 29.6 MMOL/L (24-32); eGFR 45 ML/MIN
[2017-08-17 07:16] VITALS: BP 142/64
[2017-08-17] MEDS: allopurinol 100mg tablet PO SCH (07:51)
[2017-08-17] MEDS: tamsulosin 0.4mg capsule PO SCH (07:51)
[2017-08-17] MEDS: metoprolol tartrate 12.5mg (1/2 tablet) PO SCH (07:52)
[2017-08-17] MEDS: cefTRIAXone 1g/NS 100ml IVPB 100 ML IV SCH (07:52)
[2017-08-17] MEDS: digoxin 250mcg (0.25mg) tablet PO SCH (07:52)
[2017-08-17] MEDS: amiodarone 200mg tablet PO SCH (07:52)
[2017-08-17] MEDS: apixaban 5mg tablet PO SCH (07:52)
[2017-08-17] MEDS: docusate sod 100mg capsule PO SCH (07:52)
[2017-08-17] MEDS: pantoprazole 40mg Tablet.DR PO SCH (07:53)
[2017-08-17] MEDS: pregabalin 25mg capsule PO SCH (07:53)
[2017-08-17] MEDS: furosemide 20 MG/2 ML vial IV SCH (07:53)
[2017-08-17] MEDS: potassium chloride 10mEq ER tablet PO SCH (07:53)
[2017-08-17] MEDS: LACTOBACILLUS RHAMNOSUS GG 15 billion unit sprinkle caps PO SCH (07:53)
[2017-08-17] MEDS: LACTOSE-FREE FOOD 237ML (BOOST) PO SCH ×2 (07:56→13:00)
[2017-08-17 11:39] VITALS: BP 111/70
== END 2017-08-17 14:15 | DRG 291 ==
LOC: ER 22:38 → ED HOLD 08-01 00:19 → ORTHO 4S 08-01 07:33 → PCU 3S 08-03 14:35 → MED 3N 08-13 16:39
PROVIDERS: ADMIT Family Medicine; ATTEND Family Medicine
PROC: CB121ZZ Planar Nuclear Medicine Imaging of Lungs and Bronchi using Technetium 99m (Tc-99m) (ICD-10-PCS; principal; 2017-08-02)
PROC: 5A09357 Assistance with Respiratory Ventilation, Less than 24 Consecutive Hours, Continuous Positive Airway Pressure (ICD-10-PCS; 2017-08-09)
PROC: 5A09357 Assistance with Respiratory Ventilation, Less than 24 Consecutive Hours, Continuous Positive Airway Pressure (ICD-10-PCS; 2017-08-10)
PROC: 5A09357 Assistance with Respiratory Ventilation, Less than 24 Consecutive Hours, Continuous Positive Airway Pressure (ICD-10-PCS; 2017-08-12)
PROC: 5A09357 Assistance with Respiratory Ventilation, Less than 24 Consecutive Hours, Continuous Positive Airway Pressure (ICD-10-PCS; 2017-08-15)
PROC: 5A09357 Assistance with Respiratory Ventilation, Less than 24 Consecutive Hours, Continuous Positive Airway Pressure (ICD-10-PCS; 2017-08-17)
DX: I13.0 Hypertensive heart and chronic kidney disease with heart failure and stage 1 through stage 4 chronic kidney disease, or unspecified chronic kidney disease (principal); I50.43 Acute on chronic combined systolic (congestive) and diastolic (congestive) heart failure; J96.00 Acute respiratory failure, unspecified whether with hypoxia or hypercapnia; G92 Toxic encephalopathy; N17.9 Acute kidney failure, unspecified; I47.2 Ventricular tachycardia; J18.9 Pneumonia, unspecified organism; N18.3 Chronic kidney disease, stage 3 (moderate); Z94.4 Liver transplant status; E11.22 Type 2 diabetes mellitus with diabetic chronic kidney disease; E11.51 Type 2 diabetes mellitus with diabetic peripheral angiopathy without gangrene; E11.65 Type 2 diabetes mellitus with hyperglycemia; I48.2 Chronic atrial fibrillation; I35.2 Nonrheumatic aortic (valve) stenosis with insufficiency; G83.9 Paralytic syndrome, unspecified; I25.5 Ischemic cardiomyopathy; I25.10 Atherosclerotic heart disease of native coronary artery without angina pectoris; G47.33 Obstructive sleep apnea (adult) (pediatric); Z79.01 Long term (current) use of anticoagulants; K21.9 Gastro-esophageal reflux disease without esophagitis; Z96.651 Presence of right artificial knee joint; D64.9 Anemia, unspecified; E78.00 Pure hypercholesterolemia, unspecified; E78.5 Hyperlipidemia, unspecified; G89.4 Chronic pain syndrome; M10.9 Gout, unspecified; N40.0 Benign prostatic hyperplasia without lower urinary tract symptoms; R04.0 Epistaxis; T40.2X5A Adverse effect of other opioids, initial encounter; Z90.49 Acquired absence of other specified parts of digestive tract; Z95.1 Presence of aortocoronary bypass graft; Z88.8 Allergy status to other drugs, medicaments and biological substances; Z79.899 Other long term (current) drug therapy; Z79.84 Long term (current) use of oral hypoglycemic drugs; Z85.05 Personal history of malignant neoplasm of liver; Y92.89 Other specified places as the place of occurrence of the external cause
CPT/HCPCS: 36415; 71010; 71045; 71046; 78582; 80048; 80053; 80162; 80202; 82948; 83036; 83605; 83735; 83880; 84100; 84132; 84145; 84484; 85025; 85027; 85610; 85730; 87070; 87502; 87503; 93005; 93880; 96374; 97035; 97110; 97116; 97161; 97530; 99285; A6258; A9539; A9540; J0696; J1940; J2270; J2405; J3370; J3475; J7030; J7515

== ENCOUNTER 2017-08-26 16:16 | Emergency (ER) | payer MEDICARE, BC ==
[~2017-08-26] VITALS: Ht 172.7 cm; Wt 89.0 kg
[~2017-08-26 16:16] MED LIST changes: +GLYB2.5T4 PO
[2017-08-26] MEDS ORDERED: vancomycin/NS 1 GM ADD-VANTAGE 250 ML IV ONE (16:25)
[2017-08-26] MEDS ORDERED: azithromycin/NS 500mg/250ml 250 ML IV ONE (16:25)
[2017-08-26] MEDS ORDERED: cefepime 1GM/NS ADD-VANTAGE 100 ML IV ONE (16:25)
[2017-08-26] MEDS: ipratropium/albuterol 3ml nebule NEB ONE (16:38)
[2017-08-26 16:44] LABS: BASOPHILS % (AUTO) 0.4 % (0-1); EOSINOPHILS % (AUTO) 0.1 % (0-6); HEMATOCRIT 32.2 % (42.0-52.0); HEMOGLOBIN 10.6 g/dl (14.0-17.9); LYMPHOCYTES # (AUTO) 0.8 X10'3 (1.1-4.8); LYMPHOCYTES % (AUTO) 7.6 % (21-51); MEAN CORPUSCULAR VOLUME 88.1 FL (78-98); MEAN PLATELET VOLUME 8.8 FL (7.4-10.4); MONOCYTES % (AUTO) 9.9 % (2-12); NEUTROPHILS # (AUTO) 8.1 X10'3 (1.8-7.7); PLATELET COUNT 184 X10'3 (140-440); RED BLOOD COUNT 3.65 X10'6 (4.70-6.10); RED CELL DISTRIBUTION WIDTH 22.1 % (11.5-14.5); WHITE BLOOD COUNT 9.9 X10'3 (4.5-11.0)
[2017-08-26 16:54] LABS: INR 1.3 INR; PARTIAL THROMBOPLASTIN TIME 34 SECONDS (22-32); PROTHROMBIN TIME 13.1 SECONDS (9.0-12.0)
[2017-08-26 17:13] LABS: ALANINE AMINOTRANSFERASE 13 U/L (12-78); ALBUMIN 2.3 G/DL (3.4-5.0); ALBUMIN/GLOBULIN RATIO 0.5 (1.1-1.5); ALKALINE PHOSPHATASE 125 IU/L (46-116); ANION GAP 6 (8-16); ASPARTATE AMINO TRANSFERASE 17 U/L (10-37); BILIRUBIN,TOTAL 1.4 MG/DL (0.1-1.0); BLOOD UREA NITROGEN 33 MG/DL (7-18); BUN/CREATININE RATIO 20.6 (5.4-32.0); CALCIUM 8.3 MG/DL (8.5-10.1); CHLORIDE 107 MMOL/L (99-107); MAGNESIUM 1.6 MG/DL (1.5-2.4); PHOSPHORUS 3.2 MG/DL (2.3-4.5); POTASSIUM 4.1 MMOL/L (3.5-5.1); SODIUM 146 MMOL/L (135-145); TOTAL CARBON DIOXIDE 32.8 MMOL/L (24-32); TOTAL PROTEIN 6.6 G/DL (6.4-8.2); eGFR 42 ML/MIN
[2017-08-26 17:37] LABS: GLUCOSE 152 MG/DL (70-104)
[2017-08-26] MEDS: furosemide 10 MG/1 ML 10ml inj IV ONE (18:07)
[2017-08-26] MEDS: magnesium 2GM in 50ml NS 50 ML IV ONE (18:12)
[2017-08-26] MEDS: methylPREDNISolone sod succ 125mg/2ml vial IV ONE (18:12)
[2017-08-26] MEDS: normal saline 1000ML IV soln IV ONE (18:13)
[2017-08-26] MEDS: normal saline 1000ML IV soln IVB ONE (18:27)
[2017-08-26 20:06] LABS: CLARITY,URINE CLEAR (Clear); COLOR,URINE YELLOW (Yellow); GLUCOSE, URINE NEGATIVE (Neg); KETONES,URINE NEGATIVE (Neg); LEUKOCYTE ESTERASE ,URINE NEGATIVE (Neg); NITRITES, URINE NEGATIVE (Neg); OCCULT BLOOD,URINE LARGE (Neg); PROTEIN,URINE 30 mg/dl (Neg)
[2017-08-26 20:08] LABS: UA COLLECTION TYPE CLN CATCH MIDSTREAM
[2017-08-26 20:32] LABS: BACTERIA,URINE FEW /HPF (Neg); SQUAMOUS EPITHELIAL CELL,UR FEW /LPF (FEW); WBC,URINE 0-4 /HPF (0-4)
[2017-08-26 23:03] VITALS: BP 111/47
== END 2017-08-26 22:21 | disposition home or self-care (01) ==
LOC: ER 16:17
DX: N28.9 Disorder of kidney and ureter, unspecified (principal); I11.0 Hypertensive heart disease with heart failure; I50.9 Heart failure, unspecified; E78.00 Pure hypercholesterolemia, unspecified; E11.9 Type 2 diabetes mellitus without complications; I25.10 Atherosclerotic heart disease of native coronary artery without angina pectoris; I48.91 Unspecified atrial fibrillation
CPT/HCPCS: 36415; 71045; 80053; 80162; 81001; 83605; 83735; 83880; 84100; 84145; 84484; 85025; 85610; 85730; 87040; 87502; 87503; 93306; 94640; 94760; 96365; 96375; 99285; A4353; J1940; J2930; J3475; J7030

== ENCOUNTER 2018-06-08 23:49 | Emergency (ER) | payer MEDICARE, BC ==
[~2018-06-08] VITALS: Ht 170.2 cm; Wt 95.5 kg
[~2018-06-08 23:49] MED LIST changes: +HYDR-4353 PO; -HYDR-565 PO
[2018-06-09 00:32] LABS: BASOPHILS % (AUTO) 0.2 % (0-1); EOSINOPHILS # (AUTO) 0.1 X10'3 (0-0.9); EOSINOPHILS % (AUTO) 0.6 % (0-6); HEMATOCRIT 31.2 % (42.0-52.0); HEMOGLOBIN 10.1 g/dl (14.0-17.9); LYMPHOCYTES # (AUTO) 1.1 X10'3 (1.1-4.8); LYMPHOCYTES % (AUTO) 13.1 % (21-51); MEAN CORPUSCULAR HEMOGLOBIN 30.6 PG (27.0-31.0); MEAN CORPUSCULAR HGB CONC 32.5 % (33.0-36.5); MEAN CORPUSCULAR VOLUME 94.2 FL (78-98); MEAN PLATELET VOLUME 8.4 FL (7.4-10.4); MONOCYTES # (AUTO) 0.6 X10'3 (0-0.9); MONOCYTES % (AUTO) 7.2 % (2-12); NEUTROPHILS # (AUTO) 6.5 X10'3 (1.8-7.7); NEUTROPHILS % (AUTO) 78.9 % (42-75); PLATELET COUNT 193 X10'3 (140-440); RED BLOOD COUNT 3.31 X10'6 (4.70-6.10); RED CELL DISTRIBUTION WIDTH 20.7 % (11.5-14.5); WHITE BLOOD COUNT 8.2 X10'3 (4.5-11.0)
[2018-06-09 00:50] LABS: INR 2.3 INR; PARTIAL THROMBOPLASTIN TIME 37 SECONDS (22-32); PROTHROMBIN TIME 22.7 SECONDS (9.0-12.0)
[2018-06-09 00:51] LABS: ALANINE AMINOTRANSFERASE 57 U/L (12-78); ALBUMIN 3.4 G/DL (3.4-5.0); ALKALINE PHOSPHATASE 125 IU/L (46-116); ANION GAP 10 (8-16); ASPARTATE AMINO TRANSFERASE 32 U/L (10-37); BILIRUBIN,TOTAL 0.6 MG/DL (0.1-1.0); BLOOD UREA NITROGEN 48 MG/DL (7-18); BUN/CREATININE RATIO 26.1 (5.4-32.0); CALCIUM 8.7 MG/DL (8.5-10.1); CHLORIDE 100 MMOL/L (99-107); CREATININE 1.84 MG/DL (0.60-1.10); POTASSIUM 5.1 MMOL/L (3.5-5.1); SODIUM 136 MMOL/L (135-145); TOTAL CARBON DIOXIDE 26.4 MMOL/L (24-32); TOTAL PROTEIN 6.8 G/DL (6.4-8.2); eGFR 36 ML/MIN
[2018-06-09 00:52] LABS: GLUCOSE 219 MG/DL (70-104)
[2018-06-09 00:57] LABS: ANISOCYTOSIS 3+; PLATELET ESTIMATE NORMAL; POLYCHROMASIA 1+
[2018-06-09 01:22] VITALS: BP 137/57
[2018-06-09] MEDS ORDERED: acetaminophen 325mg tablet PO ONE (01:45)
[2018-06-09 01:53] LABS: CLARITY,URINE CLEAR (Clear); COLOR,URINE YELLOW (Yellow); GLUCOSE, URINE NEGATIVE (Neg); KETONES,URINE NEGATIVE (Neg); LEUKOCYTE ESTERASE ,URINE NEGATIVE (Neg); NITRITES, URINE NEGATIVE (Neg); OCCULT BLOOD,URINE NEGATIVE (Neg); PROTEIN,URINE NEGATIVE (Neg); UROBILINOGEN,URINE 0.2 E.U/dL (0.2-1.0)
[2018-06-09 01:58] LABS: UA COLLECTION TYPE NON-SPECIFIED
[2018-06-09] MEDS ORDERED: ALLO100T PO (18:25)
[2018-06-09] MEDS ORDERED: METO25TA6 PO (18:25)
[2018-06-09] MEDS ORDERED: HYDROCODONE-ACETAMIN 10-325 MG (18:26)
[2018-06-09] MEDS ORDERED: WARFARIN SODIUM 5 MG TABLET (18:26)
[2018-06-09] MEDS ORDERED: FERR325T28 PO (18:28)
== END 2018-06-09 02:12 | disposition home or self-care (01) ==
LOC: ER 23:49
DX: R53.1 Weakness (principal); I48.91 Unspecified atrial fibrillation; D64.89 Other specified anemias; I25.10 Atherosclerotic heart disease of native coronary artery without angina pectoris; E78.00 Pure hypercholesterolemia, unspecified; M10.9 Gout, unspecified; I13.0 Hypertensive heart and chronic kidney disease with heart failure and stage 1 through stage 4 chronic kidney disease, or unspecified chronic kidney disease; E11.22 Type 2 diabetes mellitus with diabetic chronic kidney disease; N18.9 Chronic kidney disease, unspecified; I50.9 Heart failure, unspecified; Z90.49 Acquired absence of other specified parts of digestive tract; Z95.1 Presence of aortocoronary bypass graft; Z98.890 Other specified postprocedural states; Z94.4 Liver transplant status; Z88.8 Allergy status to other drugs, medicaments and biological substances; Z79.899 Other long term (current) drug therapy; Z79.84 Long term (current) use of oral hypoglycemic drugs
CPT/HCPCS: 36415; 71045; 80053; 81003; 83880; 84439; 84443; 84484; 85025; 85610; 85730; 93005; 99285

== ENCOUNTER 2018-06-09 16:52 | Inpatient (IN) | payer MEDICARE, BC ==
[~2018-06-09] VITALS: Ht 170.2 cm; Wt 93.6 kg
[2018-06-09] VITALS (7 sets, daily range): BP systolic 64–114; BP diastolic 33–52
[2018-06-09] MEDS ORDERED: normal saline 1000ml 1,000 ML IV ONE (17:25)
[2018-06-09 18:21] LABS: BASOPHILS % (AUTO) 0.3 % (0-1); EOSINOPHILS # (AUTO) 0.1 X10'3 (0-0.9); EOSINOPHILS % (AUTO) 1.4 % (0-6); LYMPHOCYTES # (AUTO) 0.9 X10'3 (1.1-4.8); MEAN CORPUSCULAR HEMOGLOBIN 30.7 PG (27.0-31.0); MEAN CORPUSCULAR HGB CONC 32.9 % (33.0-36.5); MEAN CORPUSCULAR VOLUME 93.2 FL (78-98); MEAN PLATELET VOLUME 7.8 FL (7.4-10.4); MONOCYTES # (AUTO) 0.6 X10'3 (0-0.9); MONOCYTES % (AUTO) 11.7 % (2-12); NEUTROPHILS # (AUTO) 3.9 X10'3 (1.8-7.7); NEUTROPHILS % (AUTO) 70.6 % (42-75); PLATELET COUNT 160 X10'3 (140-440); RED BLOOD COUNT 2.27 X10'6 (4.70-6.10); RED CELL DISTRIBUTION WIDTH 20.3 % (11.5-14.5); WHITE BLOOD COUNT 5.5 X10'3 (4.5-11.0)
[2018-06-09] MEDS ORDERED: METO25TA6 PO (18:25)
[2018-06-09] MEDS ORDERED: ALLO100T PO (18:25)
[2018-06-09] MEDS ORDERED: WARFARIN SODIUM 5 MG TABLET (18:26)
[2018-06-09] MEDS ORDERED: HYDROCODONE-ACETAMIN 10-325 MG (18:26)
[2018-06-09] MEDS ORDERED: FERR325T28 PO (18:28)
[2018-06-09 18:30] LABS: HEMATOCRIT 21.2 % (42.0-52.0)
[2018-06-09 18:38] LABS: ALANINE AMINOTRANSFERASE 38 U/L (12-78); ALBUMIN 2.4 G/DL (3.4-5.0); ALBUMIN/GLOBULIN RATIO 0.9 (1.1-1.5); ALKALINE PHOSPHATASE 83 IU/L (46-116); ANION GAP 9 (8-16); ASPARTATE AMINO TRANSFERASE 21 U/L (10-37); BILIRUBIN,TOTAL 0.5 MG/DL (0.1-1.0); BLOOD UREA NITROGEN 61 MG/DL (7-18); BUN/CREATININE RATIO 39.1 (5.4-32.0); CALCIUM 7.6 MG/DL (8.5-10.1); CHLORIDE 106 MMOL/L (99-107); CREATININE 1.56 MG/DL (0.60-1.10); GLUCOSE 123 MG/DL (70-104); POTASSIUM 4.4 MMOL/L (3.5-5.1); SODIUM 141 MMOL/L (135-145); TOTAL CARBON DIOXIDE 26.5 MMOL/L (24-32); TOTAL PROTEIN 5.1 G/DL (6.4-8.2); eGFR 43 ML/MIN
[2018-06-09 18:42] LABS: INR 2.5 INR; PARTIAL THROMBOPLASTIN TIME 37 SECONDS (22-32); PROTHROMBIN TIME 23.8 SECONDS (9.0-12.0)
[2018-06-09 19:04] LABS: TROPONIN I 0.04 NG/ML (0.0-0.05)
[2018-06-09 19:29] LABS: CLARITY,URINE CLEAR (Clear); COLOR,URINE YELLOW (Yellow); GLUCOSE, URINE NEGATIVE (Neg); KETONES,URINE NEGATIVE (Neg); LEUKOCYTE ESTERASE ,URINE NEGATIVE (Neg); NITRITES, URINE NEGATIVE (Neg); OCCULT BLOOD,URINE NEGATIVE (Neg); PH,URINE 5.5 (4.8-8.0); PROTEIN,URINE NEGATIVE (Neg); UROBILINOGEN,URINE 0.2 E.U/dL (0.2-1.0)
[2018-06-09 19:31] LABS: UA COLLECTION TYPE CLN CATCH MIDSTREAM
[2018-06-09] MEDS: normal saline 1000ml 1,000 ML IV SCH (20:53)
[2018-06-09] MEDS ORDERED: morphine 2 MG/ML inj. syringe IV PRN (20:55)
[2018-06-09] MEDS ORDERED: potassium Cl 40MEQ/NS 500ml 500 ML IV PRN ×2 (20:55)
[2018-06-09] MEDS ORDERED: ondansetron/PF 4mg/2ml inj IV PRN (20:55)
[2018-06-09] MEDS ORDERED: potassium Cl 20 mEq SR tablet PO PRN ×2 (20:55)
[2018-06-09] MEDS ORDERED: morphine 4 MG/ML inj SYRINge IV PRN (20:55)
[2018-06-09] MEDS: K, MAG and/or Phos replacement - Verify level? MC SCH (20:55)
[2018-06-09] MEDS ORDERED: acetaminophen 325mg tablet PO PRN (20:55)
[2018-06-09 22:42] LABS: ANISOCYTOSIS 2+; PLATELET ESTIMATE NORMAL
[2018-06-09 22:43] LABS: ELLIPTOCYTES FEW; POLYCHROMASIA 2+; TEAR DROP CELLS FEW
[2018-06-10] VITALS (35 sets, daily range): BP systolic 17–154; BP diastolic 38–80
[2018-06-10 05:44] LABS: INR 2.1 INR; PARTIAL THROMBOPLASTIN TIME 34 SECONDS (22-32); PROTHROMBIN TIME 20.6 SECONDS (9.0-12.0)
[2018-06-10 05:52] LABS: ALANINE AMINOTRANSFERASE 37 U/L (12-78); ALBUMIN 2.5 G/DL (3.4-5.0); ALBUMIN/GLOBULIN RATIO 0.9 (1.1-1.5); ALKALINE PHOSPHATASE 79 IU/L (46-116); ANION GAP 9 (8-16); ASPARTATE AMINO TRANSFERASE 21 U/L (10-37); BILIRUBIN,TOTAL 0.5 MG/DL (0.1-1.0); BLOOD UREA NITROGEN 74 MG/DL (7-18); BUN/CREATININE RATIO 47.4 (5.4-32.0); CALCIUM 7.6 MG/DL (8.5-10.1); CHLORIDE 109 MMOL/L (99-107); CREATININE 1.56 MG/DL (0.60-1.10); GLUCOSE 170 MG/DL (70-104); MAGNESIUM 1.5 MG/DL (1.5-2.4); POTASSIUM 4.6 MMOL/L (3.5-5.1); SODIUM 142 MMOL/L (135-145); TOTAL CARBON DIOXIDE 24.5 MMOL/L (24-32); TOTAL PROTEIN 5.2 G/DL (6.4-8.2); eGFR 43 ML/MIN
[2018-06-10 06:08] LABS: BASOPHILS % (AUTO) 0.4 % (0-1); EOSINOPHILS # (AUTO) 0.1 X10'3 (0-0.9); EOSINOPHILS % (AUTO) 2.6 % (0-6); HEMATOCRIT 23.6 % (42.0-52.0); HEMOGLOBIN 7.9 g/dl (14.0-17.9); LYMPHOCYTES # (AUTO) 0.8 X10'3 (1.1-4.8); LYMPHOCYTES % (AUTO) 16.8 % (21-51); MEAN CORPUSCULAR HEMOGLOBIN 30.7 PG (27.0-31.0); MEAN CORPUSCULAR HGB CONC 33.3 % (33.0-36.5); MEAN CORPUSCULAR VOLUME 92.3 FL (78-98); MEAN PLATELET VOLUME 8.6 FL (7.4-10.4); MONOCYTES # (AUTO) 0.5 X10'3 (0-0.9); NEUTROPHILS # (AUTO) 3.2 X10'3 (1.8-7.7); NEUTROPHILS % (AUTO) 69.2 % (42-75); PLATELET COUNT 155 X10'3 (140-440); RED BLOOD COUNT 2.56 X10'6 (4.70-6.10); WHITE BLOOD COUNT 4.6 X10'3 (4.5-11.0)
[2018-06-10 06:56] LABS: ANISOCYTOSIS 2+; MICROCYTOSIS 1+; PLATELET ESTIMATE NORMAL
[2018-06-10 06:57] LABS: POLYCHROMASIA 1+
[2018-06-10] MEDS ORDERED: PHYTONADIONE IV ONE (07:30)
[2018-06-10] MEDS ORDERED: NORMAL SALINE IV ONE (07:30)
[2018-06-10] MEDS: allopurinol 100mg tablet PO SCH (08:00)
[2018-06-10] MEDS: K, MAG and/or Phos replacement - Verify level? MC SCH (08:00)
[2018-06-10] MEDS: ferrous sulfate 325mg tablet PO SCH (08:00)
[2018-06-10] MEDS: metoprolol tartrate 25mg tablet PO SCH ×2 (08:00→20:22)
[2018-06-10] MEDS ORDERED: calcium carbonate/vitamin D3 tablet PO SCH (08:00)
[2018-06-10] MEDS: furosemide 40mg tablet PO SCH (09:03)
[2018-06-10] MEDS: tamsulosin 0.4mg capsule PO SCH (09:03)
[2018-06-10] MEDS: pantoprazole 40 MG vial IV SCH (09:03)
[2018-06-10] MEDS: pregabalin 25mg capsule PO SCH (09:04)
[2018-06-10] MEDS: normal saline 1000ml 1,000 ML IV SCH (10:13)
[2018-06-10] MEDS ORDERED: MIDAZolam 5mg/5ml vial ONE (11:05)
[2018-06-10] MEDS ORDERED: LIDOcaine Viscous 15ml cup ONE (11:05)
[2018-06-10] MEDS ORDERED: fentaNYL/PF 50MCG/1 ML 2ML syringe ONE (11:05)
[2018-06-10] MEDS ORDERED: furosemide 20 MG/2 ML vial IV ONE (11:15)
[2018-06-10 11:38] LABS: HEMATOCRIT 24.8 % (42.0-52.0); HEMOGLOBIN 8.2 g/dl (14.0-17.9); MEAN CORPUSCULAR HEMOGLOBIN 30.4 PG (27.0-31.0); MEAN CORPUSCULAR VOLUME 91.9 FL (78-98); MEAN PLATELET VOLUME 8.3 FL (7.4-10.4); PLATELET COUNT 172 X10'3 (140-440); RED CELL DISTRIBUTION WIDTH 20.5 % (11.5-14.5); WHITE BLOOD COUNT 5.7 X10'3 (4.5-11.0)
[2018-06-10 12:04] LABS: INR 1.7 INR; PROTHROMBIN TIME 16.7 SECONDS (9.0-12.0)
[2018-06-10] MEDS: atorvastatin 20mg tablet PO SCH (20:20)
[2018-06-10] MEDS: calcium carbonate/vitamin D3 tablet PO SCH (20:21)
[2018-06-10] MEDS ORDERED: pregabalin 25mg capsule PO SCH (21:00)
[2018-06-10] MEDS ORDERED: pregabalin 75mg capsule PO SCH (21:00)
[2018-06-11] VITALS (28 sets, daily range): BP systolic 97–135; BP diastolic 37–83
[2018-06-11] MEDS: normal saline 1000ml 1,000 ML IV SCH ×3 (01:56→14:15)
[2018-06-11 05:22] LABS: BASOPHILS % (AUTO) 0.4 % (0-1); EOSINOPHILS # (AUTO) 0.1 X10'3 (0-0.9); EOSINOPHILS % (AUTO) 2.4 % (0-6); HEMOGLOBIN 7.3 g/dl (14.0-17.9); LYMPHOCYTES # (AUTO) 0.6 X10'3 (1.1-4.8); LYMPHOCYTES % (AUTO) 15.9 % (21-51); MEAN CORPUSCULAR HEMOGLOBIN 30.3 PG (27.0-31.0); MEAN CORPUSCULAR HGB CONC 33.1 % (33.0-36.5); MEAN CORPUSCULAR VOLUME 91.4 FL (78-98); MEAN PLATELET VOLUME 8.1 FL (7.4-10.4); MONOCYTES # (AUTO) 0.4 X10'3 (0-0.9); MONOCYTES % (AUTO) 9.1 % (2-12); NEUTROPHILS # (AUTO) 2.9 X10'3 (1.8-7.7); NEUTROPHILS % (AUTO) 72.2 % (42-75); PLATELET COUNT 161 X10'3 (140-440); RED CELL DISTRIBUTION WIDTH 20.2 % (11.5-14.5)
[2018-06-11 05:36] LABS: ALANINE AMINOTRANSFERASE 36 U/L (12-78); ALBUMIN 2.6 G/DL (3.4-5.0); ALBUMIN/GLOBULIN RATIO 0.9 (1.1-1.5); ALKALINE PHOSPHATASE 96 IU/L (46-116); ANION GAP 11 (8-16); ASPARTATE AMINO TRANSFERASE 28 U/L (10-37); BILIRUBIN,TOTAL 0.8 MG/DL (0.1-1.0); BLOOD UREA NITROGEN 47 MG/DL (7-18); BUN/CREATININE RATIO 30.7 (5.4-32.0); CHLORIDE 107 MMOL/L (99-107); CREATININE 1.53 MG/DL (0.60-1.10); GLUCOSE 155 MG/DL (70-104); MAGNESIUM 1.5 MG/DL (1.5-2.4); PHOSPHORUS 3.9 MG/DL (2.3-4.5); POTASSIUM 4.3 MMOL/L (3.5-5.1); SODIUM 143 MMOL/L (135-145); TOTAL CARBON DIOXIDE 24.6 MMOL/L (24-32); TOTAL PROTEIN 5.4 G/DL (6.4-8.2); eGFR 44 ML/MIN
[2018-06-11 06:10] LABS: HEMATOCRIT 21.9 % (42.0-52.0)
[2018-06-11 06:13] LABS: PLATELET ESTIMATE NORMAL
[2018-06-11 06:14] LABS: ANISOCYTOSIS 2+; POLYCHROMASIA 1+
[2018-06-11] MEDS: pantoprazole 40 MG vial IV SCH (07:47)
[2018-06-11] MEDS: pregabalin 25mg capsule PO SCH ×2 (07:47→20:14)
[2018-06-11] MEDS: tamsulosin 0.4mg capsule PO SCH (07:48)
[2018-06-11] MEDS: ferrous sulfate 325mg tablet PO SCH (07:48)
[2018-06-11] MEDS: furosemide 40mg tablet PO SCH (07:48)
[2018-06-11] MEDS: metoprolol tartrate 25mg tablet PO SCH ×2 (07:48→20:14)
[2018-06-11] MEDS: calcium carbonate/vitamin D3 tablet PO SCH ×2 (07:48→20:14)
[2018-06-11] MEDS: allopurinol 100mg tablet PO SCH (07:49)
[2018-06-11] MEDS: K, MAG and/or Phos replacement - Verify level? MC SCH (08:00)
[2018-06-11 17:26] LABS: HEMATOCRIT 25.4 % (42.0-52.0); HEMOGLOBIN 8.4 g/dl (14.0-17.9); MEAN CORPUSCULAR HEMOGLOBIN 30.3 PG (27.0-31.0); MEAN CORPUSCULAR VOLUME 91.9 FL (78-98); MEAN PLATELET VOLUME 8.7 FL (7.4-10.4); PLATELET COUNT 187 X10'3 (140-440); RED BLOOD COUNT 2.76 X10'6 (4.70-6.10); RED CELL DISTRIBUTION WIDTH 19.6 % (11.5-14.5); WHITE BLOOD COUNT 5.4 X10'3 (4.5-11.0)
[2018-06-11] MEDS: atorvastatin 20mg tablet PO SCH (21:42)
[2018-06-12] VITALS (33 sets, daily range): BP systolic 68–111; BP diastolic 40–70
[2018-06-12] MEDS: normal saline 1000ml 1,000 ML IV SCH (02:42)
[2018-06-12] MEDS ORDERED: glucagon, human recombinant 1mg kit SUBCUT PRN (06:20)
[2018-06-12] MEDS ORDERED: MESSAGE TO PHARMACY PO ONE (06:20)
[2018-06-12] MEDS ORDERED: dextrose 50%-water 50ml dispensing syringe IV PRN ×2 (06:20)
[2018-06-12] MEDS ORDERED: dextrose ORAL solution 15 GM/59 ML bottle PO PRN ×2 (06:20)
[2018-06-12 06:39] LABS: BASOPHILS % (AUTO) 0.2 % (0-1); EOSINOPHILS # (AUTO) 0.1 X10'3 (0-0.9); EOSINOPHILS % (AUTO) 2.2 % (0-6); HEMATOCRIT 24.2 % (42.0-52.0); HEMOGLOBIN 7.8 g/dl (14.0-17.9); LYMPHOCYTES # (AUTO) 0.9 X10'3 (1.1-4.8); LYMPHOCYTES % (AUTO) 16.6 % (21-51); MEAN CORPUSCULAR HEMOGLOBIN 29.8 PG (27.0-31.0); MEAN CORPUSCULAR HGB CONC 32.4 % (33.0-36.5); MEAN CORPUSCULAR VOLUME 91.9 FL (78-98); MEAN PLATELET VOLUME 8.5 FL (7.4-10.4); MONOCYTES # (AUTO) 0.5 X10'3 (0-0.9); MONOCYTES % (AUTO) 9.6 % (2-12); NEUTROPHILS # (AUTO) 3.8 X10'3 (1.8-7.7); NEUTROPHILS % (AUTO) 71.4 % (42-75); PLATELET COUNT 163 X10'3 (140-440); RED BLOOD COUNT 2.63 X10'6 (4.70-6.10); RED CELL DISTRIBUTION WIDTH 19.4 % (11.5-14.5); WHITE BLOOD COUNT 5.3 X10'3 (4.5-11.0)
[2018-06-12 06:59] LABS: ALANINE AMINOTRANSFERASE 32 U/L (12-78); ALBUMIN 2.4 G/DL (3.4-5.0); ALBUMIN/GLOBULIN RATIO 0.8 (1.1-1.5); ALKALINE PHOSPHATASE 96 IU/L (46-116); ANION GAP 9 (8-16); ASPARTATE AMINO TRANSFERASE 22 U/L (10-37); BILIRUBIN,TOTAL 0.9 MG/DL (0.1-1.0); BLOOD UREA NITROGEN 32 MG/DL (7-18); BUN/CREATININE RATIO 19.9 (5.4-32.0); CALCIUM 7.8 MG/DL (8.5-10.1); CHLORIDE 105 MMOL/L (99-107); CREATININE 1.61 MG/DL (0.60-1.10); GLUCOSE 152 MG/DL (70-104); MAGNESIUM 1.4 MG/DL (1.5-2.4); PHOSPHORUS 4.3 MG/DL (2.3-4.5); POTASSIUM 4.1 MMOL/L (3.5-5.1); SODIUM 139 MMOL/L (135-145); TOTAL PROTEIN 5.4 G/DL (6.4-8.2); eGFR 42 ML/MIN
[2018-06-12] MEDS: pantoprazole 40mg Tablet.DR PO SCH (07:43)
[2018-06-12] MEDS: ferrous sulfate 325mg tablet PO SCH (07:43)
[2018-06-12] MEDS: pregabalin 25mg capsule PO SCH ×2 (07:43→20:38)
[2018-06-12] MEDS: allopurinol 100mg tablet PO SCH (07:43)
[2018-06-12] MEDS: furosemide 40mg tablet PO SCH (07:43)
[2018-06-12] MEDS: metoprolol tartrate 25mg tablet PO SCH ×2 (07:43→20:00)
[2018-06-12] MEDS: calcium carbonate/vitamin D3 tablet PO SCH ×2 (07:44→20:38)
[2018-06-12] MEDS: tamsulosin 0.4mg capsule PO SCH (07:44)
[2018-06-12] MEDS: K, MAG and/or Phos replacement - Verify level? MC SCH (08:00)
[2018-06-12] MEDS: insulin Lispro (HumaLOG) vial - multi-dose SQ SCH ×3 (08:21→18:51)
[2018-06-12 09:40] LABS: HEMOGLOBIN A1C 7.1 % (4.5-6.2)
[2018-06-12] MEDS: magnesium 1gm/100ml D5W IVPB 100 ML IV SCH ×2 (16:33→17:40)
[2018-06-12] MEDS: acetaminophen 325mg tablet PO PRN (17:08)
[2018-06-12 19:25] LABS: HEMATOCRIT 24.1 % (42.0-52.0); HEMOGLOBIN 7.9 g/dl (14.0-17.9); MEAN CORPUSCULAR HEMOGLOBIN 29.8 PG (27.0-31.0); MEAN CORPUSCULAR HGB CONC 32.9 % (33.0-36.5); MEAN CORPUSCULAR VOLUME 90.6 FL (78-98); MEAN PLATELET VOLUME 7.9 FL (7.4-10.4); PLATELET COUNT 164 X10'3 (140-440); RED BLOOD COUNT 2.66 X10'6 (4.70-6.10); RED CELL DISTRIBUTION WIDTH 18.8 % (11.5-14.5); WHITE BLOOD COUNT 4.9 X10'3 (4.5-11.0)
[2018-06-12 20:03] LABS: ALBUMIN 2.4 G/DL (3.4-5.0); ANION GAP 12 (8-16); BLOOD UREA NITROGEN 31 MG/DL (7-18); BUN/CREATININE RATIO 16.2 (5.4-32.0); CALCIUM 7.8 MG/DL (8.5-10.1); CHLORIDE 102 MMOL/L (99-107); CREATININE 1.91 MG/DL (0.60-1.10); GLUCOSE 224 MG/DL (70-104); MAGNESIUM 2.1 MG/DL (1.5-2.4); POTASSIUM 3.8 MMOL/L (3.5-5.1); SODIUM 137 MMOL/L (135-145); TOTAL CARBON DIOXIDE 23.4 MMOL/L (24-32); eGFR 34 ML/MIN
[2018-06-12] MEDS: enoxaparin 30mg/0.3ml syringe SUBCUT SCH (20:37)
[2018-06-12] MEDS: enoxaparin 60mg/0.6ml syringe SUBCUT SCH (20:37)
[2018-06-12] MEDS: atorvastatin 20mg tablet PO SCH (20:38)
[2018-06-12] MEDS: insulin glargine (Lantus) pen - multi-dose SQ SCH (20:47)
[2018-06-13] VITALS (16 sets, daily range): BP systolic 96–119; BP diastolic 53–70
[2018-06-13 01:27] LABS: HEMOGLOBIN 8.8 g/dl (14.0-17.9); MEAN CORPUSCULAR HGB CONC 34.1 % (33.0-36.5); MEAN CORPUSCULAR VOLUME 90.9 FL (78-98); MEAN PLATELET VOLUME 8.1 FL (7.4-10.4); PLATELET COUNT 151 X10'3 (140-440); RED BLOOD COUNT 2.86 X10'6 (4.70-6.10); RED CELL DISTRIBUTION WIDTH 17.8 % (11.5-14.5); WHITE BLOOD COUNT 4.5 X10'3 (4.5-11.0)
[2018-06-13] MEDS: normal saline 1000ml 1,000 ML IV SCH ×2 (03:05→19:01)
[2018-06-13 05:06] LABS: BASOPHILS % (AUTO) 0.3 % (0-1); EOSINOPHILS # (AUTO) 0.2 X10'3 (0-0.9); HEMOGLOBIN 9.2 g/dl (14.0-17.9); LYMPHOCYTES # (AUTO) 0.7 X10'3 (1.1-4.8); LYMPHOCYTES % (AUTO) 13.1 % (21-51); MEAN CORPUSCULAR HEMOGLOBIN 30.1 PG (27.0-31.0); MEAN CORPUSCULAR HGB CONC 32.9 % (33.0-36.5); MEAN CORPUSCULAR VOLUME 91.4 FL (78-98); MEAN PLATELET VOLUME 8.3 FL (7.4-10.4); MONOCYTES # (AUTO) 0.5 X10'3 (0-0.9); MONOCYTES % (AUTO) 9.6 % (2-12); NEUTROPHILS # (AUTO) 3.9 X10'3 (1.8-7.7); PLATELET COUNT 164 X10'3 (140-440); RED BLOOD COUNT 3.06 X10'6 (4.70-6.10); WHITE BLOOD COUNT 5.3 X10'3 (4.5-11.0)
[2018-06-13 05:20] LABS: ALANINE AMINOTRANSFERASE 31 U/L (12-78); ALBUMIN 2.5 G/DL (3.4-5.0); ALBUMIN/GLOBULIN RATIO 0.8 (1.1-1.5); ALKALINE PHOSPHATASE 106 IU/L (46-116); ANION GAP 12 (8-16); ASPARTATE AMINO TRANSFERASE 21 U/L (10-37); BILIRUBIN,TOTAL 1.1 MG/DL (0.1-1.0); BLOOD UREA NITROGEN 30 MG/DL (7-18); BUN/CREATININE RATIO 18.3 (5.4-32.0); CALCIUM 8.2 MG/DL (8.5-10.1); CHLORIDE 103 MMOL/L (99-107); CREATININE 1.64 MG/DL (0.60-1.10); GLUCOSE 149 MG/DL (70-104); SODIUM 139 MMOL/L (135-145); TOTAL CARBON DIOXIDE 24.5 MMOL/L (24-32); TOTAL PROTEIN 5.8 G/DL (6.4-8.2); eGFR 41 ML/MIN
[2018-06-13] MEDS: tamsulosin 0.4mg capsule PO SCH (07:32)
[2018-06-13] MEDS: calcium carbonate/vitamin D3 tablet PO SCH ×2 (07:32→20:05)
[2018-06-13] MEDS: pregabalin 25mg capsule PO SCH ×2 (07:32→20:05)
[2018-06-13] MEDS: pantoprazole 40mg Tablet.DR PO SCH (07:32)
[2018-06-13] MEDS: allopurinol 100mg tablet PO SCH (07:33)
[2018-06-13] MEDS: furosemide 40mg tablet PO SCH (07:33)
[2018-06-13] MEDS: ferrous sulfate 325mg tablet PO SCH (07:33)
[2018-06-13] MEDS: enoxaparin 60mg/0.6ml syringe SUBCUT SCH ×2 (07:33→20:06)
[2018-06-13] MEDS: enoxaparin 30mg/0.3ml syringe SUBCUT SCH ×2 (07:34→20:06)
[2018-06-13] MEDS: K, MAG and/or Phos replacement - Verify level? MC SCH (07:38)
[2018-06-13] MEDS: insulin Lispro (HumaLOG) vial - multi-dose SQ SCH ×3 (08:38→18:59)
[2018-06-13] MEDS: metoprolol tartrate 25mg tablet PO SCH ×2 (08:40→20:05)
[2018-06-13] MEDS ORDERED: polyethylene glycol 3350 17gm powd pack PO ONE (10:30)
[2018-06-13] MEDS: acetaminophen 325mg tablet PO PRN (10:50)
[2018-06-13] MEDS: polyethylene glycol 3350 17gm powd pack PO SCH (11:02)
[2018-06-13 16:25] LABS: HEMATOCRIT 28.1 % (42.0-52.0); HEMOGLOBIN 9.2 g/dl (14.0-17.9); MEAN CORPUSCULAR HEMOGLOBIN 29.6 PG (27.0-31.0); MEAN CORPUSCULAR HGB CONC 32.8 % (33.0-36.5); MEAN CORPUSCULAR VOLUME 90.3 FL (78-98); MEAN PLATELET VOLUME 8.3 FL (7.4-10.4); PLATELET COUNT 180 X10'3 (140-440); RED BLOOD COUNT 3.11 X10'6 (4.70-6.10); RED CELL DISTRIBUTION WIDTH 18.4 % (11.5-14.5); WHITE BLOOD COUNT 5.1 X10'3 (4.5-11.0)
[2018-06-13] MEDS: atorvastatin 20mg tablet PO SCH (20:05)
[2018-06-13] MEDS: insulin glargine (Lantus) pen - multi-dose SQ SCH (21:00)
[2018-06-14] VITALS (7 sets, daily range): BP systolic 88–114; BP diastolic 46–67
[2018-06-14 05:10] LABS: BASOPHILS % (AUTO) 0.3 % (0-1); EOSINOPHILS # (AUTO) 0.2 X10'3 (0-0.9); EOSINOPHILS % (AUTO) 4.5 % (0-6); HEMATOCRIT 27.4 % (42.0-52.0); HEMOGLOBIN 9.1 g/dl (14.0-17.9); LYMPHOCYTES # (AUTO) 0.8 X10'3 (1.1-4.8); LYMPHOCYTES % (AUTO) 18.7 % (21-51); MEAN CORPUSCULAR HEMOGLOBIN 29.7 PG (27.0-31.0); MEAN CORPUSCULAR HGB CONC 33.1 % (33.0-36.5); MEAN CORPUSCULAR VOLUME 89.8 FL (78-98); MEAN PLATELET VOLUME 8.3 FL (7.4-10.4); MONOCYTES # (AUTO) 0.5 X10'3 (0-0.9); MONOCYTES % (AUTO) 11.2 % (2-12); NEUTROPHILS # (AUTO) 2.9 X10'3 (1.8-7.7); NEUTROPHILS % (AUTO) 65.3 % (42-75); PLATELET COUNT 201 X10'3 (140-440); RED BLOOD COUNT 3.05 X10'6 (4.70-6.10); RED CELL DISTRIBUTION WIDTH 18.5 % (11.5-14.5); WHITE BLOOD COUNT 4.5 X10'3 (4.5-11.0)
[2018-06-14 05:20] LABS: ALANINE AMINOTRANSFERASE 29 U/L (12-78); ALBUMIN 2.5 G/DL (3.4-5.0); ALBUMIN/GLOBULIN RATIO 0.7 (1.1-1.5); ALKALINE PHOSPHATASE 119 IU/L (46-116); ANION GAP 10 (8-16); ASPARTATE AMINO TRANSFERASE 21 U/L (10-37); BILIRUBIN,TOTAL 1.3 MG/DL (0.1-1.0); BLOOD UREA NITROGEN 27 MG/DL (7-18); BUN/CREATININE RATIO 16.5 (5.4-32.0); CALCIUM 8.4 MG/DL (8.5-10.1); CHLORIDE 104 MMOL/L (99-107); CREATININE 1.64 MG/DL (0.60-1.10); GLUCOSE 105 MG/DL (70-104); MAGNESIUM 1.9 MG/DL (1.5-2.4); PHOSPHORUS 4.1 MG/DL (2.3-4.5); SODIUM 139 MMOL/L (135-145); TOTAL CARBON DIOXIDE 25.1 MMOL/L (24-32); TOTAL PROTEIN 5.9 G/DL (6.4-8.2); eGFR 41 ML/MIN
[2018-06-14] MEDS: furosemide 40mg tablet PO SCH (07:20)
[2018-06-14] MEDS: ferrous sulfate 325mg tablet PO SCH (07:20)
[2018-06-14] MEDS: pantoprazole 40mg Tablet.DR PO SCH (07:20)
[2018-06-14] MEDS: tamsulosin 0.4mg capsule PO SCH (07:20)
[2018-06-14] MEDS: calcium carbonate/vitamin D3 tablet PO SCH ×2 (07:21→19:34)
[2018-06-14] MEDS: metoprolol tartrate 25mg tablet PO SCH ×2 (07:21→19:31)
[2018-06-14] MEDS: pregabalin 25mg capsule PO SCH ×2 (07:21→19:33)
[2018-06-14] MEDS: allopurinol 100mg tablet PO SCH (07:21)
[2018-06-14] MEDS: enoxaparin 60mg/0.6ml syringe SUBCUT SCH (07:22)
[2018-06-14] MEDS: enoxaparin 30mg/0.3ml syringe SUBCUT SCH (07:23)
[2018-06-14] MEDS: normal saline 1000ml 1,000 ML IV SCH (07:31)
[2018-06-14] MEDS: K, MAG and/or Phos replacement - Verify level? MC SCH (07:35)
[2018-06-14] MEDS: polyethylene glycol 3350 17gm powd pack PO SCH (10:06)
[2018-06-14] MEDS: insulin Lispro (HumaLOG) vial - multi-dose SQ SCH ×2 (13:34→19:33)
[2018-06-14 14:20] LABS: HEMATOCRIT 27.1 % (42.0-52.0); HEMOGLOBIN 8.8 g/dl (14.0-17.9); MEAN CORPUSCULAR HEMOGLOBIN 29.2 PG (27.0-31.0); MEAN CORPUSCULAR HGB CONC 32.5 % (33.0-36.5); MEAN PLATELET VOLUME 8.4 FL (7.4-10.4); PLATELET COUNT 218 X10'3 (140-440); RED BLOOD COUNT 3.01 X10'6 (4.70-6.10); RED CELL DISTRIBUTION WIDTH 18.4 % (11.5-14.5); WHITE BLOOD COUNT 3.8 X10'3 (4.5-11.0)
[2018-06-14 16:13] LABS: HEMATOCRIT 28.6 % (42.0-52.0); HEMOGLOBIN 9.3 g/dl (14.0-17.9); MEAN CORPUSCULAR HEMOGLOBIN 29.3 PG (27.0-31.0); MEAN CORPUSCULAR HGB CONC 32.7 % (33.0-36.5); MEAN CORPUSCULAR VOLUME 89.8 FL (78-98); MEAN PLATELET VOLUME 8.2 FL (7.4-10.4); PLATELET COUNT 237 X10'3 (140-440); RED BLOOD COUNT 3.18 X10'6 (4.70-6.10); RED CELL DISTRIBUTION WIDTH 18.2 % (11.5-14.5); WHITE BLOOD COUNT 4.3 X10'3 (4.5-11.0)
[2018-06-14] MEDS: atorvastatin 20mg tablet PO SCH (19:34)
[2018-06-14] MEDS: apixaban 5mg tablet PO SCH (19:34)
[2018-06-14] MEDS: insulin glargine (Lantus) pen - multi-dose SQ SCH (21:40)
[2018-06-14 21:52] LABS: HEMATOCRIT 29.3 % (42.0-52.0); HEMOGLOBIN 9.7 g/dl (14.0-17.9); MEAN CORPUSCULAR HEMOGLOBIN 29.5 PG (27.0-31.0); MEAN CORPUSCULAR HGB CONC 33.1 % (33.0-36.5); MEAN CORPUSCULAR VOLUME 89.3 FL (78-98); MEAN PLATELET VOLUME 8.1 FL (7.4-10.4); PLATELET COUNT 242 X10'3 (140-440); RED BLOOD COUNT 3.28 X10'6 (4.70-6.10); RED CELL DISTRIBUTION WIDTH 18.1 % (11.5-14.5); WHITE BLOOD COUNT 4.6 X10'3 (4.5-11.0)
[2018-06-15 02:00] VITALS: BP 133/60
[2018-06-15 05:59] LABS: BASOPHILS % (AUTO) 0.2 % (0-1); EOSINOPHILS # (AUTO) 0.1 X10'3 (0-0.9); EOSINOPHILS % (AUTO) 2.2 % (0-6); HEMATOCRIT 28.5 % (42.0-52.0); HEMOGLOBIN 9.4 g/dl (14.0-17.9); LYMPHOCYTES # (AUTO) 0.7 X10'3 (1.1-4.8); LYMPHOCYTES % (AUTO) 15.6 % (21-51); MEAN CORPUSCULAR HEMOGLOBIN 29.4 PG (27.0-31.0); MEAN CORPUSCULAR HGB CONC 32.9 % (33.0-36.5); MEAN CORPUSCULAR VOLUME 89.5 FL (78-98); MEAN PLATELET VOLUME 8.1 FL (7.4-10.4); MONOCYTES # (AUTO) 0.5 X10'3 (0-0.9); MONOCYTES % (AUTO) 11.1 % (2-12); NEUTROPHILS # (AUTO) 3.3 X10'3 (1.8-7.7); NEUTROPHILS % (AUTO) 70.9 % (42-75); PLATELET COUNT 246 X10'3 (140-440); RED BLOOD COUNT 3.19 X10'6 (4.70-6.10); RED CELL DISTRIBUTION WIDTH 18.4 % (11.5-14.5); WHITE BLOOD COUNT 4.7 X10'3 (4.5-11.0)
[2018-06-15 06:00] VITALS: BP 149/56
[2018-06-15 06:05] LABS: ALANINE AMINOTRANSFERASE 31 U/L (12-78); ALBUMIN 2.6 G/DL (3.4-5.0); ALBUMIN/GLOBULIN RATIO 0.7 (1.1-1.5); ALKALINE PHOSPHATASE 144 IU/L (46-116); ANION GAP 12 (8-16); ASPARTATE AMINO TRANSFERASE 21 U/L (10-37); BILIRUBIN,TOTAL 1.2 MG/DL (0.1-1.0); BLOOD UREA NITROGEN 26 MG/DL (7-18); BUN/CREATININE RATIO 16.7 (5.4-32.0); CALCIUM 8.5 MG/DL (8.5-10.1); CHLORIDE 103 MMOL/L (99-107); CREATININE 1.56 MG/DL (0.60-1.10); GLUCOSE 120 MG/DL (70-104); MAGNESIUM 1.7 MG/DL (1.5-2.4); PHOSPHORUS 3.7 MG/DL (2.3-4.5); POTASSIUM 4.1 MMOL/L (3.5-5.1); SODIUM 137 MMOL/L (135-145); TOTAL CARBON DIOXIDE 22.4 MMOL/L (24-32); TOTAL PROTEIN 6.2 G/DL (6.4-8.2); eGFR 43 ML/MIN
[2018-06-15] MEDS: allopurinol 100mg tablet PO SCH (07:11)
[2018-06-15] MEDS: pregabalin 25mg capsule PO SCH (07:12)
[2018-06-15] MEDS: apixaban 5mg tablet PO SCH (07:12)
[2018-06-15] MEDS: ferrous sulfate 325mg tablet PO SCH (07:12)
[2018-06-15] MEDS: calcium carbonate/vitamin D3 tablet PO SCH (07:12)
[2018-06-15] MEDS: pantoprazole 40mg Tablet.DR PO SCH (07:13)
[2018-06-15] MEDS: furosemide 40mg tablet PO SCH (07:13)
[2018-06-15] MEDS: tamsulosin 0.4mg capsule PO SCH (07:13)
[2018-06-15] MEDS: metoprolol tartrate 25mg tablet PO SCH (07:13)
[2018-06-15] MEDS: polyethylene glycol 3350 17gm powd pack PO SCH (08:00)
[2018-06-15] MEDS: K, MAG and/or Phos replacement - Verify level? MC SCH (08:00)
[2018-06-15 11:00] VITALS: BP 125/57
[2018-06-15] MEDS: insulin Lispro (HumaLOG) vial - multi-dose SQ SCH (13:43)
[2018-06-15] MEDS ORDERED: APIX5TAB3 PO (14:07)
== END 2018-06-15 14:40 | disposition home or self-care (01) | DRG 378 ==
LOC: ER 16:52 → ED HOLD 20:53 → ICU 2S 21:50 → PCU 3S 06-13 12:15
PROVIDERS: ADMIT Internal Medicine; ATTEND Family Medicine
PROC: 30233N1 Transfusion of Nonautologous Red Blood Cells into Peripheral Vein, Percutaneous Approach (ICD-10-PCS; 2018-06-09)
PROC: 0W3P8ZZ Control Bleeding in Gastrointestinal Tract, Via Natural or Artificial Opening Endoscopic (ICD-10-PCS; principal; 2018-06-10)
PROC: 30233L1 Transfusion of Nonautologous Fresh Plasma into Peripheral Vein, Percutaneous Approach (ICD-10-PCS; 2018-06-10)
PROC: 30233K1 Transfusion of Nonautologous Frozen Plasma into Peripheral Vein, Percutaneous Approach (ICD-10-PCS; 2018-06-10)
PROC: 30233N1 Transfusion of Nonautologous Red Blood Cells into Peripheral Vein, Percutaneous Approach (ICD-10-PCS; 2018-06-11)
PROC: 30233N1 Transfusion of Nonautologous Red Blood Cells into Peripheral Vein, Percutaneous Approach (ICD-10-PCS; 2018-06-12)
PROC: 5A09357 Assistance with Respiratory Ventilation, Less than 24 Consecutive Hours, Continuous Positive Airway Pressure (ICD-10-PCS; 2018-06-15)
DX: K31.811 Angiodysplasia of stomach and duodenum with bleeding (principal); I13.0 Hypertensive heart and chronic kidney disease with heart failure and stage 1 through stage 4 chronic kidney disease, or unspecified chronic kidney disease; I50.32 Chronic diastolic (congestive) heart failure; Z94.4 Liver transplant status; D64.9 Anemia, unspecified; E11.22 Type 2 diabetes mellitus with diabetic chronic kidney disease; E11.51 Type 2 diabetes mellitus with diabetic peripheral angiopathy without gangrene; E78.00 Pure hypercholesterolemia, unspecified; E78.5 Hyperlipidemia, unspecified; F10.10 Alcohol abuse, uncomplicated; G47.33 Obstructive sleep apnea (adult) (pediatric); Z96.651 Presence of right artificial knee joint; M10.9 Gout, unspecified; I95.9 Hypotension, unspecified; I35.0 Nonrheumatic aortic (valve) stenosis; I25.10 Atherosclerotic heart disease of native coronary artery without angina pectoris; E11.42 Type 2 diabetes mellitus with diabetic polyneuropathy; I48.2 Chronic atrial fibrillation; I51.3 Intracardiac thrombosis, not elsewhere classified; K21.9 Gastro-esophageal reflux disease without esophagitis; N18.9 Chronic kidney disease, unspecified; N40.0 Benign prostatic hyperplasia without lower urinary tract symptoms; Z99.81 Dependence on supplemental oxygen; Z90.49 Acquired absence of other specified parts of digestive tract; Z95.1 Presence of aortocoronary bypass graft; Z95.2 Presence of prosthetic heart valve; Z88.8 Allergy status to other drugs, medicaments and biological substances; Z79.01 Long term (current) use of anticoagulants; Z79.899 Other long term (current) drug therapy; Z85.05 Personal history of malignant neoplasm of liver
CPT/HCPCS: 36415; 80048; 80053; 81003; 82948; 83036; 83735; 84100; 84484; 85025; 85027; 85610; 85730; 86885; 86900; 86901; 86920; 87070; 93005; 94660; 94760; 97110; 97116; 97161; 99152; 99291; A4620; C9113; G0378; J1650; J1815; J1940; J2250; J3010; J3430; J7030; J7515; P9016; P9059

== ENCOUNTER 2018-08-14 05:33 | Inpatient (IN) | payer MEDICARE, BC | END 2018-08-16 12:12 | disposition home or self-care (01) | LOC: ER 05:33 → SUR 3N 08-15 17:26 → ED HOLD 08:20 → PCU 3S 13:08 | DX: K92.2 Gastrointestinal hemorrhage, unspecified (principal); Z94.4 Liver transplant status; Q27.33 Arteriovenous malformation of digestive system vessel; E78.5 Hyperlipidemia, unspecified; E11.21 Type 2 diabetes mellitus with diabetic nephropathy; E11.22 Type 2 diabetes mellitus with diabetic chronic kidney disease; N18.3 Chronic kidney disease, stage 3 (moderate) ==

== ENCOUNTER 2018-09-04 22:04 | Emergency (ER) | payer MEDICARE, BC ==
[~2018-09-04] VITALS: Ht 170.2 cm; Wt 99.5 kg
[~2018-09-04 22:04] MED LIST changes: -APIX5TAB3 PO; +ASPI81TA52 PO; -CYCL100C PO; -CYCL1DRO6 OP; -ESOM40CA PO; +FERR325T28 PO; -FURO-150 PO; +GLYB1.253 PO; -GLYB2.5T4 PO; +OMEP40CA37 PO; -PREG200C PO; -VITA400C21 PO; -ZOLP5TAB8 PO
--- NOTE | 2018-09-04 22:46 | NUR ---
Patient is A&O x4, MARIE and is appropriate with family at the bedside. He reports increasing SOB and weight gain with a hx of CHF. I will continue to monitor.
[2018-09-04 23:03] LABS: BASOPHILS % (AUTO) 0.1 % (0-1); EOSINOPHILS # (AUTO) 0.2 X10'3 (0-0.9); EOSINOPHILS % (AUTO) 2.1 % (0-6); HEMATOCRIT 31.6 % (42.0-52.0); HEMOGLOBIN 10.1 g/dl (14.0-17.9); LYMPHOCYTES # (AUTO) 0.7 X10'3 (1.1-4.8); LYMPHOCYTES % (AUTO) 7.7 % (21-51); MEAN CORPUSCULAR HEMOGLOBIN 28.5 PG (27.0-31.0); MEAN CORPUSCULAR HGB CONC 31.9 g/dL (33.0-36.5); MEAN CORPUSCULAR VOLUME 89.4 FL (78-98); MONOCYTES # (AUTO) 0.6 X10'3 (0-0.9); NEUTROPHILS # (AUTO) 7.5 X10'3 (1.8-7.7); NEUTROPHILS % (AUTO) 83.1 % (42-75); PLATELET COUNT 237 X10'3 (140-440); RED BLOOD COUNT 3.53 X10'6 (4.70-6.10); RED CELL DISTRIBUTION WIDTH 20.3 % (11.5-14.5)
[2018-09-04 23:23] LABS: ALANINE AMINOTRANSFERASE 27 U/L (12-78); ALBUMIN 3.5 G/DL (3.4-5.0); ALKALINE PHOSPHATASE 136 IU/L (46-116); ANION GAP 13 (8-16); ASPARTATE AMINO TRANSFERASE 19 U/L (10-37); BILIRUBIN,TOTAL 0.6 MG/DL (0.1-1.0); BLOOD UREA NITROGEN 40 MG/DL (7-18); BUN/CREATININE RATIO 24.4 (5.4-32.0); CALCIUM 8.3 MG/DL (8.5-10.1); CHLORIDE 100 MMOL/L (99-107); CREATININE 1.64 MG/DL (0.60-1.10); POTASSIUM 4.6 MMOL/L (3.5-5.1); SODIUM 138 MMOL/L (135-145); TOTAL CARBON DIOXIDE 24.8 MMOL/L (24-32); TOTAL PROTEIN 6.9 G/DL (6.4-8.2); eGFR 41 ML/MIN
[2018-09-04 23:27] LABS: GLUCOSE 122 MG/DL (70-104)
[2018-09-04 23:28] LABS: ANISOCYTOSIS 2+; PLATELET ESTIMATE NORMAL; POLYCHROMASIA 1+
[2018-09-04 23:29] VITALS: BP_SYST 198
[2018-09-04 23:29] LABS: ELLIPTOCYTES FEW; TEAR DROP CELLS FEW
[2018-09-04] MEDS ORDERED: furosemide 10 MG/1 ML 10ml inj IV ONE (23:40)
[2018-09-04] MEDS ORDERED: furosemide 40mg/4ml inj IV ONE (23:45)
[2018-09-04 23:57] VITALS: BP_DIAS 129
== END 2018-09-05 | disposition home or self-care (01) ==
LOC: ER 22:05
DX: I13.0 Hypertensive heart and chronic kidney disease with heart failure and stage 1 through stage 4 chronic kidney disease, or unspecified chronic kidney disease (principal); I50.9 Heart failure, unspecified; E11.22 Type 2 diabetes mellitus with diabetic chronic kidney disease; N18.9 Chronic kidney disease, unspecified; Z94.0 Kidney transplant status; R06.02 Shortness of breath; I25.10 Atherosclerotic heart disease of native coronary artery without angina pectoris; I48.91 Unspecified atrial fibrillation; M10.9 Gout, unspecified; Z90.49 Acquired absence of other specified parts of digestive tract; Z98.890 Other specified postprocedural states; Z88.8 Allergy status to other drugs, medicaments and biological substances; Z79.82 Long term (current) use of aspirin; Z79.899 Other long term (current) drug therapy
CPT/HCPCS: 36415; 71046; 80053; 83605; 83880; 84145; 84484; 85025; 87040; 93005; 96374; 99284; J1940

== ENCOUNTER 2018-10-20 00:10 | Emergency (ER) | payer MEDICARE, BC ==
[~2018-10-20] VITALS: Ht 170.2 cm; Wt 99.1 kg
--- NOTE | 2018-10-20 00:33 | NUR ---
PT OUT TO CT WITH AGGIE DAVIS AND [employer]
[2018-10-20] MEDS ORDERED: HYDROcodone/acetaminophen 5mg/325mg tablet PO ONE (00:55)
[2018-10-20 01:48] VITALS: BP 149/79
--- NOTE | 2018-10-20 01:48 | NUR ---
DISCUSSED MED ORDER WITH ROCIO MANZANARES; HOLD MEDS, PT BEING TRANSFERRED TO [facility].
--- NOTE | 2018-10-20 01:56 | NUR ---
REPORT CALLED TO TATE DAVIS AT [facility].
== END 2018-10-20 03:40 | disposition short-term general hospital (02) ==
LOC: ER 00:10
DX: S06.6X0A Traumatic subarachnoid hemorrhage without loss of consciousness, initial encounter (principal); S00.83XA Contusion of other part of head, initial encounter; M25.552 Pain in left hip; I48.91 Unspecified atrial fibrillation; I25.10 Atherosclerotic heart disease of native coronary artery without angina pectoris; I13.0 Hypertensive heart and chronic kidney disease with heart failure and stage 1 through stage 4 chronic kidney disease, or unspecified chronic kidney disease; E11.22 Type 2 diabetes mellitus with diabetic chronic kidney disease; N18.9 Chronic kidney disease, unspecified; I50.9 Heart failure, unspecified; E78.00 Pure hypercholesterolemia, unspecified; Z90.49 Acquired absence of other specified parts of digestive tract; Z95.1 Presence of aortocoronary bypass graft; Z98.890 Other specified postprocedural states; Z94.4 Liver transplant status; Z88.8 Allergy status to other drugs, medicaments and biological substances; Z79.82 Long term (current) use of aspirin; Z79.899 Other long term (current) drug therapy; W10.8XXA Fall (on) (from) other stairs and steps, initial encounter; Y92.018 Other place in single-family (private) house as the place of occurrence of the external cause; Y93.89 Activity, other specified
CPT/HCPCS: 70450; 72125; 73502; 99285

== ENCOUNTER 2019-12-29 04:14 | Emergency (ER) | payer MEDICARE, BC ==
[~2019-12-29] VITALS: Ht 170.2 cm; Wt 107.3 kg
[~2019-12-29 04:14] MED LIST changes: +OMEP40CA13 PO; -OMEP40CA37 PO
[2019-12-29] MEDS ORDERED: LIDOcaine 4% (40 mg/ml) topical solution 50ml TP ONE (04:25)
[2019-12-29] MEDS ORDERED: phenylephrine 1% (X-tra strg) 15ml nasal spray NS ONE (04:25)
--- NOTE | 2019-12-29 04:36 | NUR ---
MD at bedside inserting rapid rhino. Pt. tolerating procedure well.
[2019-12-29 04:56] VITALS: BP 134/55
== END 2019-12-29 04:57 | disposition home or self-care (01) ==
LOC: ER 04:14
DX: R04.0 Epistaxis (principal); I48.91 Unspecified atrial fibrillation; I25.10 Atherosclerotic heart disease of native coronary artery without angina pectoris; I50.9 Heart failure, unspecified; E78.00 Pure hypercholesterolemia, unspecified; I13.0 Hypertensive heart and chronic kidney disease with heart failure and stage 1 through stage 4 chronic kidney disease, or unspecified chronic kidney disease; G47.30 Sleep apnea, unspecified; N18.9 Chronic kidney disease, unspecified; E11.22 Type 2 diabetes mellitus with diabetic chronic kidney disease; Z90.49 Acquired absence of other specified parts of digestive tract; Z95.1 Presence of aortocoronary bypass graft; Z98.890 Other specified postprocedural states; Z88.8 Allergy status to other drugs, medicaments and biological substances; Z79.82 Long term (current) use of aspirin; Z79.899 Other long term (current) drug therapy
CPT/HCPCS: 30901; 99284

== ENCOUNTER 2019-12-29 10:25 | Emergency (ER) | payer MEDICARE, BC ==
[~2019-12-29] VITALS: Ht 170.2 cm; Wt 107.3 kg
[2019-12-29 11:43] VITALS: BP 117/77
--- NOTE | 2019-12-29 11:46 | NUR ---
Pt not comfortable w/ dc presently as intermittant nose bleeding continues after edmd fior increased balloon inflation of rhino rocket. Discussed w/ edmd fior, reassure pt drip expected and will decrease.
== END 2019-12-29 11:55 | disposition home or self-care (01) ==
LOC: ER 10:26
DX: R04.0 Epistaxis (principal); I48.91 Unspecified atrial fibrillation; I25.10 Atherosclerotic heart disease of native coronary artery without angina pectoris; I13.0 Hypertensive heart and chronic kidney disease with heart failure and stage 1 through stage 4 chronic kidney disease, or unspecified chronic kidney disease; E11.22 Type 2 diabetes mellitus with diabetic chronic kidney disease; N18.9 Chronic kidney disease, unspecified; I50.9 Heart failure, unspecified; E78.00 Pure hypercholesterolemia, unspecified; G47.30 Sleep apnea, unspecified; Z90.49 Acquired absence of other specified parts of digestive tract; Z95.1 Presence of aortocoronary bypass graft; Z98.890 Other specified postprocedural states; Z88.8 Allergy status to other drugs, medicaments and biological substances; Z79.82 Long term (current) use of aspirin; Z79.899 Other long term (current) drug therapy
CPT/HCPCS: 30901; 99282; 99284; 99285

== ENCOUNTER 2019-12-31 09:51 | Emergency (ER) | payer MEDICARE, BC ==
[~2019-12-31] VITALS: Ht 170.2 cm; Wt 110.0 kg
[2019-12-31 09:57] VITALS: BP 160/75
== END 2019-12-31 11:40 | disposition home or self-care (01) ==
LOC: ER 09:52
DX: Z48.00 Encounter for change or removal of nonsurgical wound dressing (principal); I48.91 Unspecified atrial fibrillation; I25.10 Atherosclerotic heart disease of native coronary artery without angina pectoris; I50.9 Heart failure, unspecified; E78.00 Pure hypercholesterolemia, unspecified; I13.0 Hypertensive heart and chronic kidney disease with heart failure and stage 1 through stage 4 chronic kidney disease, or unspecified chronic kidney disease; G47.30 Sleep apnea, unspecified; N18.9 Chronic kidney disease, unspecified; E11.22 Type 2 diabetes mellitus with diabetic chronic kidney disease; Z90.49 Acquired absence of other specified parts of digestive tract; Z95.1 Presence of aortocoronary bypass graft; Z98.890 Other specified postprocedural states; Z88.8 Allergy status to other drugs, medicaments and biological substances; Z79.82 Long term (current) use of aspirin; Z79.899 Other long term (current) drug therapy
CPT/HCPCS: 99281

== ENCOUNTER 2021-06-14 06:09 | Emergency (ER) | payer MEDICARE, BC ==
[~2021-06-14] VITALS: Ht 170.2 cm; Wt 109.1 kg
[~2021-06-14 06:09] MED LIST changes: +LOP25T PO; -METO25TA6 PO; -OMEP40CA13 PO; +OMEP40CA21 PO; +POTA-192 PO; -POTA10TA19 PO
[2021-06-14 08:30] LABS: BASOPHILS % (AUTO) 0.6 % (0-1); EOSINOPHILS # (AUTO) 0.1 X10'3 (0-0.9); EOSINOPHILS % (AUTO) 1.7 % (0-6); HEMATOCRIT 35.7 % (42.0-52.0); HEMOGLOBIN 11.4 g/dl (14.0-17.9); LYMPHOCYTES # (AUTO) 0.7 X10'3 (1.1-4.8); LYMPHOCYTES % (AUTO) 10.6 % (21-51); MEAN CORPUSCULAR HEMOGLOBIN 24.4 PG (27.0-31.0); MEAN CORPUSCULAR HGB CONC 31.8 g/dL (33.0-36.5); MEAN CORPUSCULAR VOLUME 76.6 FL (78-98); MEAN PLATELET VOLUME 7.7 FL (7.4-10.4); MONOCYTES # (AUTO) 0.7 X10'3 (0-0.9); MONOCYTES % (AUTO) 10.9 % (2-12); NEUTROPHILS # (AUTO) 5.2 X10'3 (1.8-7.7); NEUTROPHILS % (AUTO) 76.2 % (42-75); PLATELET COUNT 178 X10'3 (140-440); RED BLOOD COUNT 4.66 X10'6 (4.70-6.10); RED CELL DISTRIBUTION WIDTH 21.7 % (11.5-14.5); WHITE BLOOD COUNT 6.8 X10'3 (4.5-11.0)
[2021-06-14 08:47] LABS: ALANINE AMINOTRANSFERASE 23 U/L (12-78); ALBUMIN 3.6 G/DL (3.4-5.0); ALKALINE PHOSPHATASE 137 IU/L (46-116); ANION GAP 8 (8-16); ASPARTATE AMINO TRANSFERASE 19 U/L (10-37); BILIRUBIN,TOTAL 0.7 MG/DL (0.1-1.0); BLOOD UREA NITROGEN 53 MG/DL (7-18); BUN/CREATININE RATIO 28.2 (5.4-32.0); CALCIUM 8.5 MG/DL (8.5-10.1); CHLORIDE 102 MMOL/L (99-107); CREATININE 1.88 MG/DL (0.60-1.10); POTASSIUM 5.1 MMOL/L (3.5-5.1); SODIUM 139 MMOL/L (135-145); TOTAL CARBON DIOXIDE 29.2 MMOL/L (24-32); TOTAL PROTEIN 7.1 G/DL (6.4-8.2); eGFR 35 ML/MIN
[2021-06-14 08:49] LABS: GLUCOSE 109 MG/DL (70-104)
[2021-06-14 09:16] LABS: PLATELET ESTIMATE NORMAL
[2021-06-14 09:17] LABS: ANISOCYTOSIS 3+; ELLIPTOCYTES 1+; HYPOCHROMASIA 1+; MICROCYTOSIS 1+; POLYCHROMASIA FEW
[2021-06-14] MEDS ORDERED: furosemide 10 MG/1 ML 10ml inj IV ONE (14:40)
--- NOTE | 2021-06-14 16:16 | NUR ---
DECREASED O2 2L
[2021-06-14 17:57] VITALS: BP 142/82
== END 2021-06-14 17:58 | disposition home or self-care (01) ==
LOC: ER 06:11
DX: I11.0 Hypertensive heart disease with heart failure (principal); Z20.822 Contact with and (suspected) exposure to COVID-19; I50.9 Heart failure, unspecified; I25.10 Atherosclerotic heart disease of native coronary artery without angina pectoris; I48.91 Unspecified atrial fibrillation; E78.00 Pure hypercholesterolemia, unspecified; I12.9 Hypertensive chronic kidney disease with stage 1 through stage 4 chronic kidney disease, or unspecified chronic kidney disease; N18.9 Chronic kidney disease, unspecified; Z88.8 Allergy status to other drugs, medicaments and biological substances; Z79.82 Long term (current) use of aspirin; Z79.899 Other long term (current) drug therapy; Z79.01 Long term (current) use of anticoagulants; Z90.49 Acquired absence of other specified parts of digestive tract; Z95.5 Presence of coronary angioplasty implant and graft
CPT/HCPCS: 36415; 71045; 80053; 83880; 84145; 84484; 85008; 85025; 87635; 93005; 96374; 99285; C9803; J1940

== ENCOUNTER 2021-08-04 16:58 | Inpatient (IN) | payer MEDICARE, BC ==
[~2021-08-04] VITALS: Ht 170.2 cm; Wt 109.0 kg
[2021-08-04 17:54] LABS: BASOPHILS % (AUTO) 0.6 % (0-1); EOSINOPHILS # (AUTO) 0.1 X10'3 (0-0.9); EOSINOPHILS % (AUTO) 1.4 % (0-6); HEMATOCRIT 36.5 % (42.0-52.0); HEMOGLOBIN 11.4 g/dl (14.0-17.9); LYMPHOCYTES # (AUTO) 0.8 X10'3 (1.1-4.8); LYMPHOCYTES % (AUTO) 12.6 % (21-51); MEAN CORPUSCULAR HEMOGLOBIN 23.4 PG (27.0-31.0); MEAN CORPUSCULAR HGB CONC 31.3 g/dL (33.0-36.5); MEAN CORPUSCULAR VOLUME 74.8 FL (78-98); MONOCYTES # (AUTO) 0.6 X10'3 (0-0.9); MONOCYTES % (AUTO) 10.5 % (2-12); NEUTROPHILS # (AUTO) 4.5 X10'3 (1.8-7.7); NEUTROPHILS % (AUTO) 74.9 % (42-75); PLATELET COUNT 205 X10'3 (140-440); RED BLOOD COUNT 4.88 X10'6 (4.70-6.10); RED CELL DISTRIBUTION WIDTH 22.3 % (11.5-14.5); WHITE BLOOD COUNT 6.1 X10'3 (4.5-11.0)
[2021-08-04 18:03] LABS: ALANINE AMINOTRANSFERASE 18 U/L (12-78); ALBUMIN 3.8 G/DL (3.4-5.0); ALBUMIN/GLOBULIN RATIO 0.9 (1.1-1.5); ALKALINE PHOSPHATASE 153 IU/L (46-116); ANION GAP 8 (8-16); ASPARTATE AMINO TRANSFERASE 20 U/L (10-37); BLOOD UREA NITROGEN 33 MG/DL (7-18); BUN/CREATININE RATIO 25.4 (5.4-32.0); CALCIUM 8.9 MG/DL (8.5-10.1); CHLORIDE 101 MMOL/L (99-107); POTASSIUM 4.7 MMOL/L (3.5-5.1); SODIUM 140 MMOL/L (135-145); TOTAL CARBON DIOXIDE 31.5 MMOL/L (24-32); eGFR 53 ML/MIN
[2021-08-04 18:09] LABS: GLUCOSE 78 MG/DL (70-104)
--- NOTE | 2021-08-04 20:00 | NUR ---
Transported to room 6 from the RAP area via wheelchair.
[2021-08-04] MEDS ORDERED: PERFLUTREN PROTEIN-A MICROSPHR (Optison) 0.22 MG/ML 3ML VIAL IV ONE (20:25)
[2021-08-04] MEDS ORDERED: insulin Lispro (HumaLOG) vial - multi-dose SQ SCH (20:25)
[2021-08-04] MEDS ORDERED: glucagon, human recombinant 1mg kit SUBCUT PRN (20:25)
[2021-08-04] MEDS ORDERED: dextrose ORAL solution 15 GM/59 ML bottle PO PRN ×2 (20:25)
[2021-08-04] MEDS ORDERED: magnesium 2GM in 50ml NS 50 ML IV PRN (20:25)
[2021-08-04] MEDS ORDERED: MESSAGE TO PHARMACY PO ONE (20:25)
[2021-08-04] MEDS ORDERED: potassium Cl 20 mEq SR tablet PO PRN ×2 (20:25)
[2021-08-04] MEDS ORDERED: dextrose 50%-water 50ml dispensing syringe IV PRN ×2 (20:25)
[2021-08-04] MEDS ORDERED: magnesium 4gm in 100ml NS 100 ML IV PRN (20:25)
[2021-08-04] MEDS ORDERED: ondansetron/PF 4mg/2ml inj IV PRN (20:25)
[2021-08-04] MEDS ORDERED: mag hydrox/Alum hydrox/simeth 30ml oral suspension PO PRN (20:25)
[2021-08-04] MEDS ORDERED: potassium CL 10mEq/100ml bag 100 ML IV PRN (20:25)
[2021-08-04] MEDS ORDERED: acetaminophen 325mg tablet PO PRN (20:25)
[2021-08-04] MEDS: insulin glargine (Lantus) pen - multi-dose SQ SCH (21:00)
[2021-08-04 21:03] LABS: HEMOGLOBIN A1C 6.6 % (4.5-6.2)
[2021-08-04 22:35] LABS: PLATELET ESTIMATE NORMAL
[2021-08-04 22:36] LABS: ANISOCYTOSIS 3+; MICROCYTOSIS 1+
[2021-08-04 22:37] LABS: BURR CELLS FEW; ELLIPTOCYTES 1+; POLYCHROMASIA FEW
[2021-08-04 22:38] LABS: HYPOCHROMASIA 1+; LARGE PLATELETS FEW
[2021-08-05 01:36] LABS: BASOPHILS % (AUTO) 0.8 % (0-1); EOSINOPHILS # (AUTO) 0.1 X10'3 (0-0.9); EOSINOPHILS % (AUTO) 1.9 % (0-6); HEMATOCRIT 35.4 % (42.0-52.0); HEMOGLOBIN 11.2 g/dl (14.0-17.9); LYMPHOCYTES # (AUTO) 0.9 X10'3 (1.1-4.8); LYMPHOCYTES % (AUTO) 14.6 % (21-51); MEAN CORPUSCULAR HEMOGLOBIN 23.6 PG (27.0-31.0); MEAN CORPUSCULAR HGB CONC 31.6 g/dL (33.0-36.5); MEAN CORPUSCULAR VOLUME 74.7 FL (78-98); MEAN PLATELET VOLUME 8.2 FL (7.4-10.4); MONOCYTES # (AUTO) 0.6 X10'3 (0-0.9); MONOCYTES % (AUTO) 10.2 % (2-12); NEUTROPHILS # (AUTO) 4.2 X10'3 (1.8-7.7); NEUTROPHILS % (AUTO) 72.5 % (42-75); PLATELET COUNT 201 X10'3 (140-440); RED BLOOD COUNT 4.74 X10'6 (4.70-6.10); RED CELL DISTRIBUTION WIDTH 22.6 % (11.5-14.5); WHITE BLOOD COUNT 5.9 X10'3 (4.5-11.0)
[2021-08-05 01:38] LABS: ALANINE AMINOTRANSFERASE 9 U/L (12-78); ALBUMIN 3.5 G/DL (3.4-5.0); ALBUMIN/GLOBULIN RATIO 0.9 (1.1-1.5); ALKALINE PHOSPHATASE 142 IU/L (46-116); ANION GAP 8 (8-16); ASPARTATE AMINO TRANSFERASE 21 U/L (10-37); BLOOD UREA NITROGEN 31 MG/DL (7-18); BUN/CREATININE RATIO 26.3 (5.4-32.0); CALCIUM 8.9 MG/DL (8.5-10.1); CHLORIDE 102 MMOL/L (99-107); CHOL/HDL RATIO 3.2 (0.00-4.99); CHOLESTEROL 82 MG/DL (0-200); CREATININE 1.18 MG/DL (0.60-1.10); HDL CHOLESTEROL 26 MG/DL (35-60); LDL CHOLESTEROL 44 MG/DL (50-100); MAGNESIUM 1.9 MG/DL (1.5-2.4); POTASSIUM 4.3 MMOL/L (3.5-5.1); SODIUM 141 MMOL/L (135-145); TOTAL CARBON DIOXIDE 30.7 MMOL/L (24-32); TOTAL PROTEIN 7.5 G/DL (6.4-8.2); TRIGLYCERIDES 100 MG/DL (20-135); eGFR 59 ML/MIN
[2021-08-05 01:42] LABS: GLUCOSE 78 MG/DL (70-104)
[2021-08-05] MEDS ORDERED: HYDROcodone/acetaminophen 10/325mg tab PO PRN (02:05)
[2021-08-05 03:02] LABS: ANISOCYTOSIS 3+; MICROCYTOSIS 1+; PLATELET ESTIMATE NORMAL
[2021-08-05 03:04] LABS: ELLIPTOCYTES 1+; LARGE PLATELETS FEW; SCHISTOCYTES FEW
[2021-08-05 03:05] LABS: POLYCHROMASIA FEW
[2021-08-05] MEDS ORDERED: DULO30CA52 PO (03:10)
[2021-08-05] MEDS ORDERED: APIX5TAB3 PO (03:42)
[2021-08-05] MEDS ORDERED: ESOM40CA PO (03:47)
[2021-08-05] MEDS ORDERED: MAGN400T56 PO (03:59)
[2021-08-05] MEDS ORDERED: MULT-1141 PO (04:06)
[2021-08-05] MEDS ORDERED: CALC-1215 PO (04:13)
[2021-08-05] MEDS: K and/or MAG REPLACEMENT MC SCH ×2 (07:59→20:00)
[2021-08-05] MEDS ORDERED: allopurinol 100mg tablet PO SCH ×2 (08:00→13:13)
--- NOTE | 2021-08-05 08:36 | NUR ---
pt taken off bipap to eat breakfast placed on 6L saturations maintaining
[2021-08-05] MEDS: pregabalin 25mg capsule PO SCH ×2 (08:40→20:06)
[2021-08-05] MEDS: calcium carbonate/vitamin D3 tablet PO SCH ×2 (08:40→20:06)
[2021-08-05] MEDS: tamsulosin 0.4mg capsule PO SCH (08:41)
[2021-08-05] MEDS: docusate sod 100mg capsule PO SCH ×2 (08:41→20:06)
[2021-08-05] MEDS: metoprolol tartrate 25mg tablet PO SCH ×2 (08:41→20:06)
[2021-08-05] MEDS: heparin, porcine 5000 units/ml vial SQ SCH ×2 (08:42→20:08)
[2021-08-05] MEDS ORDERED: ALLO100T PO (11:34)
[2021-08-05] MEDS ORDERED: CYCL25CA PO (11:34)
[2021-08-05] MEDS ORDERED: ICOS1CAP PO (11:34)
--- NOTE | 2021-08-05 11:43 | NUR ---
DR GA AWARE MED REC HAS BEEN UP DATED AND IS AWARE OF RT 4TH TOE HAS BEEN BLACK X2 DAYS, NAIL HAS BEEN BLACK FOR 2 WEEKS, REPORT TO FRANCK DAVIS
--- NOTE | 2021-08-05 13:00 | NUR ---
Lunch given pt placed on in pt bed after using bedside commode
[2021-08-05 15:00] VITALS: BP 133/68
[2021-08-05 18:00] VITALS: BP 124/79
[2021-08-05] MEDS ORDERED: non-formulary drug (Calcium Carbonate/Vitamin D3 (Calcium + D 600 Mg Tablet) 1 EACH) PO SCH (20:00)
[2021-08-05] MEDS: furosemide 10 MG/1 ML 10ml inj IV SCH (20:01)
[2021-08-05] MEDS: magnesium oxide 400mg tablet PO SCH (20:06)
[2021-08-05] MEDS: atorvastatin 20mg tablet PO SCH (20:19)
[2021-08-05] MEDS: insulin glargine (Lantus) pen - multi-dose SQ SCH (20:25)
[2021-08-05 22:00] VITALS: BP 146/70
[2021-08-06] VITALS (8 sets, daily range): BP systolic 90–149; BP diastolic 59–86
[2021-08-06] MEDS ORDERED: HYDROcodone/acetaminophen 5mg/325mg tablet PO ONE ×2 (05:55→06:35)
--- NOTE | 2021-08-06 06:30 | NUR ---
Problems reprioritized. Patient report given, questions answered & plan of care reviewed with SUSAN Harley.
[2021-08-06 06:44] LABS: BASOPHILS % (AUTO) 0.6 % (0-1); EOSINOPHILS # (AUTO) 0.1 X10'3 (0-0.9); EOSINOPHILS % (AUTO) 2.3 % (0-6); HEMATOCRIT 35.3 % (42.0-52.0); LYMPHOCYTES # (AUTO) 0.6 X10'3 (1.1-4.8); LYMPHOCYTES % (AUTO) 10.7 % (21-51); MEAN CORPUSCULAR HEMOGLOBIN 23.4 PG (27.0-31.0); MEAN CORPUSCULAR HGB CONC 31.1 g/dL (33.0-36.5); MEAN CORPUSCULAR VOLUME 75.4 FL (78-98); MONOCYTES # (AUTO) 0.6 X10'3 (0-0.9); MONOCYTES % (AUTO) 9.9 % (2-12); NEUTROPHILS # (AUTO) 4.4 X10'3 (1.8-7.7); NEUTROPHILS % (AUTO) 76.5 % (42-75); PLATELET COUNT 218 X10'3 (140-440); RED BLOOD COUNT 4.68 X10'6 (4.70-6.10); RED CELL DISTRIBUTION WIDTH 22.6 % (11.5-14.5); WHITE BLOOD COUNT 5.7 X10'3 (4.5-11.0)
[2021-08-06 07:15] LABS: ALANINE AMINOTRANSFERASE 20 U/L (12-78); ALBUMIN 3.5 G/DL (3.4-5.0); ALKALINE PHOSPHATASE 138 IU/L (46-116); ANION GAP 6 (8-16); BLOOD UREA NITROGEN 27 MG/DL (7-18); CHLORIDE 104 MMOL/L (99-107); CREATININE 1.23 MG/DL (0.60-1.10); POTASSIUM 4.5 MMOL/L (3.5-5.1); SODIUM 143 MMOL/L (135-145); eGFR 56 ML/MIN
--- NOTE | 2021-08-06 07:29 | NUR ---
Diabetes consult: Noted A1C 6.6 appropriate for age. DM ed not indicated at this time. Addendum: 08/06/21 at [address] Amended: Links added.
[2021-08-06 07:36] LABS: ALBUMIN/GLOBULIN RATIO 0.9 (1.1-1.5); ASPARTATE AMINO TRANSFERASE 24 U/L (10-37); CALCIUM 9.1 MG/DL (8.5-10.1); GLUCOSE 105 MG/DL (70-104); TOTAL PROTEIN 7.4 G/DL (6.4-8.2)
[2021-08-06] MEDS: K and/or MAG REPLACEMENT MC SCH ×2 (08:00→19:00)
[2021-08-06] MEDS: metoprolol tartrate 25mg tablet PO SCH ×2 (08:00→19:30)
[2021-08-06] MEDS ORDERED: allopurinol 100mg tablet PO SCH (08:00)
[2021-08-06] MEDS: duloxetine 30mg CAPSULE.DR PO SCH (08:38)
[2021-08-06] MEDS: multivitamins, therapeutics tablet PO SCH (08:38)
[2021-08-06] MEDS: allopurinol 100mg tablet PO SCH (08:38)
[2021-08-06] MEDS: pantoprazole 40mg Tablet.DR PO SCH (08:38)
[2021-08-06] MEDS: docusate sod 100mg capsule PO SCH ×2 (08:38→19:30)
[2021-08-06] MEDS: pregabalin 25mg capsule PO SCH ×2 (08:38→19:28)
[2021-08-06] MEDS: calcium carbonate/vitamin D3 tablet PO SCH ×2 (08:38→19:28)
[2021-08-06] MEDS: heparin, porcine 5000 units/ml vial SQ SCH ×2 (08:40→19:28)
[2021-08-06] MEDS: magnesium oxide 400mg tablet PO SCH ×2 (08:40→19:28)
[2021-08-06] MEDS: tamsulosin 0.4mg capsule PO SCH (08:40)
[2021-08-06] MEDS: furosemide 10 MG/1 ML 10ml inj IV SCH ×2 (08:41→19:31)
[2021-08-06 10:26] LABS: GLUCOSE,BODY FLUID 124 MG/DL; LDH,BODY FLUID 97 U/L; TOTAL PROTEIN,BODY FLUID 2.6 G/DL
[2021-08-06 10:27] LABS: PLEURAL FLUID PH 7.392 (7.63-7.65)
[2021-08-06 10:28] LABS: BFSOURCE RIGHT PLEURAL FLD
[2021-08-06 12:09] LABS: BF RBC COUNT 620 /CU MM; BF WBC COUNT 755 /CU MM (0-1000); BFAPPEAR HAZY; BFCOLOR YELLOW; BFVOLUME 63 ML
[2021-08-06 12:16] LABS: BF MESOTHELIAL CELLS FEW; EOSINOPHILS,BODY FLUID 2 %; LYMPHOCYTES,BODY FLUID 48 %; MONOCYTES,BODY FLUID 30 %; NEUTROPHILS,BODY FLUID 20 %
[2021-08-06] MEDS: atorvastatin 20mg tablet PO SCH (19:34)
[2021-08-06] MEDS: insulin glargine (Lantus) pen - multi-dose SQ SCH (21:00)
[2021-08-07 02:00] VITALS: BP_SYST 119; BP_SYST 143; BP_DIAS 47; BP_DIAS 63
--- NOTE | 2021-08-07 06:18 | NUR ---
reported to days. noted pt may get to go home today
[2021-08-07 07:06] LABS: BASOPHILS % (AUTO) 0.6 % (0-1); EOSINOPHILS # (AUTO) 0.1 X10'3 (0-0.9); EOSINOPHILS % (AUTO) 2.2 % (0-6); HEMATOCRIT 36.3 % (42.0-52.0); HEMOGLOBIN 11.4 g/dl (14.0-17.9); LYMPHOCYTES # (AUTO) 0.7 X10'3 (1.1-4.8); LYMPHOCYTES % (AUTO) 13.3 % (21-51); MEAN CORPUSCULAR HEMOGLOBIN 23.6 PG (27.0-31.0); MEAN CORPUSCULAR HGB CONC 31.4 g/dL (33.0-36.5); MEAN CORPUSCULAR VOLUME 75.2 FL (78-98); MEAN PLATELET VOLUME 8.1 FL (7.4-10.4); MONOCYTES # (AUTO) 0.6 X10'3 (0-0.9); MONOCYTES % (AUTO) 10.4 % (2-12); NEUTROPHILS # (AUTO) 4.1 X10'3 (1.8-7.7); NEUTROPHILS % (AUTO) 73.5 % (42-75); PLATELET COUNT 227 X10'3 (140-440); RED BLOOD COUNT 4.83 X10'6 (4.70-6.10); RED CELL DISTRIBUTION WIDTH 22.2 % (11.5-14.5); WHITE BLOOD COUNT 5.6 X10'3 (4.5-11.0)
[2021-08-07 07:13] VITALS: BP 150/81
[2021-08-07 07:23] LABS: ALANINE AMINOTRANSFERASE 13 U/L (12-78); ALBUMIN 3.6 G/DL (3.4-5.0); ALKALINE PHOSPHATASE 142 IU/L (46-116); ANION GAP 6 (8-16); BLOOD UREA NITROGEN 38 MG/DL (7-18); BUN/CREATININE RATIO 24.2 (5.4-32.0); CHLORIDE 104 MMOL/L (99-107); CREATININE 1.57 MG/DL (0.60-1.10); POTASSIUM 4.6 MMOL/L (3.5-5.1); SODIUM 144 MMOL/L (135-145); TOTAL CARBON DIOXIDE 34.3 MMOL/L (24-32); eGFR 43 ML/MIN
[2021-08-07 07:26] LABS: ALBUMIN/GLOBULIN RATIO 0.9 (1.1-1.5); ASPARTATE AMINO TRANSFERASE 20 U/L (10-37); BILIRUBIN,TOTAL 0.9 MG/DL (0.1-1.0); CALCIUM 9.3 MG/DL (8.5-10.1); GLUCOSE 111 MG/DL (70-104); TOTAL PROTEIN 7.8 G/DL (6.4-8.2)
[2021-08-07] MEDS: K and/or MAG REPLACEMENT MC SCH (07:54)
[2021-08-07] MEDS: furosemide 10 MG/1 ML 10ml inj IV SCH (08:06)
[2021-08-07] MEDS: calcium carbonate/vitamin D3 tablet PO SCH (08:06)
[2021-08-07] MEDS: pregabalin 25mg capsule PO SCH (08:06)
[2021-08-07 08:07] VITALS: BP_SYST 150
[2021-08-07] MEDS: duloxetine 30mg CAPSULE.DR PO SCH (08:07)
[2021-08-07] MEDS: pantoprazole 40mg Tablet.DR PO SCH (08:07)
[2021-08-07] MEDS: magnesium oxide 400mg tablet PO SCH (08:07)
[2021-08-07] MEDS: allopurinol 100mg tablet PO SCH (08:07)
[2021-08-07] MEDS: tamsulosin 0.4mg capsule PO SCH (08:07)
[2021-08-07] MEDS: multivitamins, therapeutics tablet PO SCH (08:07)
[2021-08-07] MEDS: metoprolol tartrate 25mg tablet PO SCH (08:07)
[2021-08-07] MEDS: docusate sod 100mg capsule PO SCH (08:07)
[2021-08-07] MEDS: heparin, porcine 5000 units/ml vial SQ SCH (08:08)
[2021-08-07 09:12] LABS: PLATELET ESTIMATE NORMAL
[2021-08-07 09:13] LABS: ANISOCYTOSIS 3+; HYPOCHROMASIA 1+; MICROCYTOSIS 1+; POLYCHROMASIA 1+
[2021-08-07 09:14] LABS: ELLIPTOCYTES 1+; STOMATOCYTES 1+
== END 2021-08-07 11:55 | disposition home health service (06) | DRG 189 ==
LOC: ER 16:59 → ED HOLD 20:34 → PCU 3S 08-05 15:31
PROVIDERS: ADMIT Family Medicine; ATTEND Family Medicine
PROC: 5A09357 Assistance with Respiratory Ventilation, Less than 24 Consecutive Hours, Continuous Positive Airway Pressure (ICD-10-PCS; 2021-08-05)
PROC: 5A0935A Assistance with Respiratory Ventilation, Less than 24 Consecutive Hours, High Flow/Velocity Cannula (ICD-10-PCS; 2021-08-05)
PROC: 0W993ZZ Drainage of Right Pleural Cavity, Percutaneous Approach (ICD-10-PCS; principal; 2021-08-06)
DX: J96.21 Acute and chronic respiratory failure with hypoxia (principal); I50.33 Acute on chronic diastolic (congestive) heart failure; I13.0 Hypertensive heart and chronic kidney disease with heart failure and stage 1 through stage 4 chronic kidney disease, or unspecified chronic kidney disease; Z94.4 Liver transplant status; J91.8 Pleural effusion in other conditions classified elsewhere; I25.10 Atherosclerotic heart disease of native coronary artery without angina pectoris; I48.0 Paroxysmal atrial fibrillation; N18.9 Chronic kidney disease, unspecified; N40.0 Benign prostatic hyperplasia without lower urinary tract symptoms; E11.22 Type 2 diabetes mellitus with diabetic chronic kidney disease; E78.00 Pure hypercholesterolemia, unspecified; Z96.653 Presence of artificial knee joint, bilateral; M10.9 Gout, unspecified; Z20.822 Contact with and (suspected) exposure to COVID-19; K74.60 Unspecified cirrhosis of liver; G47.33 Obstructive sleep apnea (adult) (pediatric); E11.51 Type 2 diabetes mellitus with diabetic peripheral angiopathy without gangrene; E11.42 Type 2 diabetes mellitus with diabetic polyneuropathy; S99.921A Unspecified injury of right foot, initial encounter; X58.XXXA Exposure to other specified factors, initial encounter; Y93.89 Activity, other specified; Y92.89 Other specified places as the place of occurrence of the external cause; Y99.8 Other external cause status; Z95.1 Presence of aortocoronary bypass graft; Z90.49 Acquired absence of other specified parts of digestive tract; Z85.819 Personal history of malignant neoplasm of unspecified site of lip, oral cavity, and pharynx; Z79.4 Long term (current) use of insulin; Z82.5 Family history of asthma and other chronic lower respiratory diseases; Z80.3 Family history of malignant neoplasm of breast; Z88.8 Allergy status to other drugs, medicaments and biological substances; Z79.899 Other long term (current) drug therapy; Z79.82 Long term (current) use of aspirin; Z95.2 Presence of prosthetic heart valve; Z82.49 Family history of ischemic heart disease and other diseases of the circulatory system
CPT/HCPCS: 32555; 36415; 71045; 71250; 80053; 80061; 82945; 82948; 83036; 83605; 83615; 83735; 83880; 83986; 84157; 84484; 85008; 85025; 87040; 87070; 87075; 87081; 87502; 87503; 87635; 89051; 93306; 93922; 93926; 94660; 94760; 97116; 97161; 97530; 99285; C9803; G0378; J1644; J1815; J1940; J7515